=== PATIENT | male | born 1955 ===

== ENCOUNTER 2020-10-26 11:00 | Outpatient (REF) | payer MEDICARE, SELFPAY ==
[2020-10-26 11:58] LABS: MANUAL DIFF FLAG NO
[2020-10-26 12:03] LABS: Basophils Percent Auto 0.6 % (0-2); Eosinophils Absolute Auto 0.2 X10*3/uL (0.0-0.4); Eosinophils Percent Auto 2.7 % (0-4); Hematocrit 42.7 % (42-52); Hemoglobin 14.5 g/dl (14.0-18.0); Imm Gran Abs Auto 0.01 X10*3/uL (0.00-0.03); Imm Gran Pct Auto 0.2 % (0.0-0.4); Lymphocytes Absolute Auto 2.5 X10*3/uL (1.2-4.9); Lymphocytes Percent Auto 38.5 % (20-40); Mean Corpuscular Hemoglobin 31.3 pg (27.0-33.0); Mean Corpuscular Volume 92.2 fL (80-98); Mean Platelet Volume 9.9 fL (9.4-12.4); Monocytes Absolute Auto 0.5 X10*3/uL (0.1-1.2); Monocytes Percent Auto 8.4 % (2-11); Neutrophils Absolute Auto 3.2 X10*3/uL (2.0-8.3); Neutrophils Percent Auto 49.6 % (45-73); Platelet Count 233 X10*3/uL (160-400); Red Blood Count 4.63 X10*6/uL (4.60-5.80); Red Cell Distribution Width 12.2 % (11.0-16.0); White Blood Count 6.4 X10*3/uL (4.8-10.8)
[2020-10-26 12:37] LABS: Alanine Aminotransferase 31 U/L (0-40); Albumin Level 4.5 g/dL (3.5-5.0); Alkaline Phosphatase 58 U/L (39-117); Anion Gap 12 (12-20); Aspartate Amino Transferase 25 U/L (5-37); Bilirubin Total 1.1 mg/dL (0.0-1.0); Blood Urea Nitrogen 26 mg/dL (9-16); Calcium 9.1 mg/dL (8.4-10.2); Carbon Dioxide 30 mmol/L (22-29); Chloride 104 mmol/L (96-108); Cholesterol 219 mg/dL; Estimated Glomerular Filt Rate > 60; Glucose Fasting 94 mg/dL (60-99); HDL Cholesterol 67 mg/dL; LDL Cholesterol Calculated 128 mg/dl; Potassium 4.3 mmol/L (3.3-5.1); Sodium 142 mmol/L (135-145); Total Protein 6.5 g/dL (6.5-8.0); Triglycerides 123 mg/dL
[2020-10-26 12:48] LABS: Prostate Specific Antigen Scr 0.65 ng/mL (<0.05-4.0); TSH reflex Free T4 2.66 uIU/mL (0.32-4.0)
== END 2020-10-26 11:01 | disposition home or self-care (01) ==
LOC: HO.LAB 11:00
PROVIDERS: PCP Internal Medicine; Visit Provider Internal Medicine
DX: Z00.00 Encounter for general adult medical examination without abnormal findings (principal); I10 Essential (primary) hypertension; E78.00 Pure hypercholesterolemia, unspecified; Z12.5 Encounter for screening for malignant neoplasm of prostate
CPT/HCPCS: 36415; 80053; 80061; 84153; 84443; 85025

== ENCOUNTER 2021-09-02 09:27 | Outpatient (REF) | payer MEDICARE, SELFPAY ==
[2021-09-02 12:23] LABS: Appearance Urine CLEAR; Color Urine YELLOW; Glucose Urine UA NEG (NEG); Leukocyte Esterase Urine NEG (NEG); Nitrite Urine NEG (NEG); PH 5.5 (5.0-8.0); Specific Gravity - Urine >= 1.030 (1.005-1.025); Urine Blood NEG (NEG); Urine Ketones 15 MG/DL (NEG); Urine Protein NEG (NEG-TRACE)
[2021-09-02 14:08] LABS: Alanine Aminotransferase 35 U/L (0-40); Albumin Level 4.4 g/dL (3.5-5.0); Alkaline Phosphatase 61 U/L (39-117); Anion Gap 13 (12-20); Aspartate Amino Transferase 30 U/L (5-37); Bilirubin Total 0.7 mg/dL (0.0-1.0); Blood Urea Nitrogen 23 mg/dL (9-16); Calcium 9.8 mg/dL (8.4-10.2); Carbon Dioxide 27 mmol/L (22-29); Chloride 103 mmol/L (96-108); Cholesterol 231 mg/dL; Estimated Glomerular Filt Rate > 60; Glucose Fasting 94 mg/dL (60-99); HDL Cholesterol 62 mg/dL; LDL Cholesterol Calculated 155 mg/dl; Potassium 4.2 mmol/L (3.3-5.1); Sodium 139 mmol/L (135-145); Total Protein 6.7 g/dL (6.5-8.0); Triglycerides 72 mg/dL
== END 2021-09-02 09:28 | disposition home or self-care (01) ==
LOC: HO.LAB 09:27
PROVIDERS: PCP Internal Medicine; Visit Provider Internal Medicine
DX: Z00.00 Encounter for general adult medical examination without abnormal findings (principal); I10 Essential (primary) hypertension; E78.00 Pure hypercholesterolemia, unspecified
CPT/HCPCS: 36415; 80053; 80061; 81003

== ENCOUNTER 2022-05-26 08:26 | Outpatient (REF) | payer MEDICARE, SELFPAY ==
[2022-05-26 09:38] LABS: Alanine Aminotransferase 31 U/L (0-40); Albumin Level 4.6 g/dL (3.5-5.0); Alkaline Phosphatase 56 U/L (39-117); Anion Gap 15 (12-20); Aspartate Amino Transferase 27 U/L (5-37); Bilirubin Total 0.7 mg/dL (0.0-1.0); Blood Urea Nitrogen 31 mg/dL (9-16); Calcium 9.6 mg/dL (8.4-10.2); Carbon Dioxide 25 mmol/L (22-29); Chloride 104 mmol/L (96-108); Cholesterol 328 mg/dL; Estimated Glomerular Filt Rate > 60; Glucose Fasting 104 mg/dL (60-99); HDL Cholesterol 69 mg/dL; LDL Cholesterol Calculated 241 mg/dl; Potassium 4.5 mmol/L (3.3-5.1); Sodium 139 mmol/L (135-145); Total Protein 6.8 g/dL (6.5-8.0); Triglycerides 91 mg/dL
[2022-05-26 10:01] LABS: Prostate Specific Antigen 0.44 ng/mL (<0.05-4.0)
== END 2022-05-26 08:27 | disposition home or self-care (01) ==
LOC: HO.LAB 08:26
PROVIDERS: PCP Internal Medicine; Visit Provider Internal Medicine
DX: Z00.00 Encounter for general adult medical examination without abnormal findings (principal); N40.0 Benign prostatic hyperplasia without lower urinary tract symptoms; E78.00 Pure hypercholesterolemia, unspecified; Z12.5 Encounter for screening for malignant neoplasm of prostate
CPT/HCPCS: 36415; 80053; 80061; 84153

== ENCOUNTER 2022-06-02 10:04 | Outpatient (REF) | payer MEDICARE, SELFPAY ==
--- NOTE | ~2022-06-02 | XR_ITS ---
EXAMINATION: XR CERVICAL SPINE CLINICAL INFORMATION: Neck pain and tightness COMPARISON: None TECHNIQUE: 3 views of the cervical spine were obtained. FINDINGS: Bone alignment is normal. No fracture or dislocation is seen. There is degenerative spondylosis and degenerative disc disease from C4-C5 to C6-C7. Prevertebral soft tissues are normal. XR/XR cervical spine 3V IMPRESSION: Degenerative changes.
== END 2022-06-02 10:05 | disposition home or self-care (01) ==
LOC: HO.XRAY 10:04
PROVIDERS: PCP Internal Medicine; Visit Provider Internal Medicine
DX: M54.2 Cervicalgia (principal)
CPT/HCPCS: 72040

== ENCOUNTER → 2022-06-10 07:44 | Outpatient (BNVA) | payer MEDICARE, SELFPAY | PROVIDERS: PCP Internal Medicine; Visit Provider Nurse Practitioner Family | DX: G47.33 Obstructive sleep apnea (adult) (pediatric) (principal) | CPT/HCPCS: 99202 ==

== ENCOUNTER → 2022-06-30 12:46 | Outpatient (REF) | payer MEDICARE, SELFPAY | LOC: HO.SL 12:46 | PROVIDERS: PCP Internal Medicine; Visit Provider Nurse Practitioner Family | DX: G47.33 Obstructive sleep apnea (adult) (pediatric) (principal) | CPT/HCPCS: 95806 ==

== ENCOUNTER → 2022-08-29 13:54 | Outpatient (BNVA) | payer MEDICARE, SELFPAY | PROVIDERS: PCP Internal Medicine; Visit Provider Nurse Practitioner Family | DX: G47.33 Obstructive sleep apnea (adult) (pediatric) (principal); J34.2 Deviated nasal septum; R06.83 Snoring; E66.3 Overweight; Z68.24 Body mass index [BMI] 24.0-24.9, adult | CPT/HCPCS: 99212 ==

== ENCOUNTER 2022-11-24 08:26 | Outpatient (REF) | payer MEDICARE, SELFPAY ==
[2022-11-24 08:45] LABS: MANUAL DIFF FLAG NO
[2022-11-24 09:04] LABS: Basophils Percent Auto 0.9 % (0-2); Eosinophils Absolute Auto 0.1 X10*3/uL (0.0-0.4); Eosinophils Percent Auto 2.7 % (0-4); Hematocrit 40.5 % (42.0-52.0); Hemoglobin 13.6 g/dl (14.0-18.0); Lymphocytes Absolute Auto 2.2 X10*3/uL (1.2-4.9); Lymphocytes Percent Auto 50.1 % (20-40); Mean Corpuscular HGB Conc 33.6 g/dl (31.0-36.0); Mean Corpuscular Hemoglobin 31.5 pg (27.0-33.0); Mean Corpuscular Volume 93.8 fL (80.0-98.0); Mean Platelet Volume 9.8 fL (9.4-12.4); Monocytes Absolute Auto 0.4 X10*3/uL (0.1-1.2); Monocytes Percent Auto 9.2 % (2-11); Neutrophils Absolute Auto 1.7 x10*3/uL (2.0-8.3); Neutrophils Percent Auto 37.1 % (45-73); Platelet Count 209 X10*3/uL (160-400); Red Blood Count 4.32 X10*6/uL (4.60-5.80); Red Cell Distribution Width 12.6 % (11.0-16.0); White Blood Count 4.5 X10*3/uL (4.8-10.8)
[2022-11-24 09:19] LABS: Estimated Average Glucose 105 mg/dL; Hemoglobin A1c % 5.3 %
[2022-11-24 09:57] LABS: Alanine Aminotransferase 35 U/L (0-40); Albumin Level 4.7 g/dL (3.5-5.0); Alkaline Phosphatase 50 U/L (39-117); Anion Gap 13 (12-20); Aspartate Amino Transferase 30 U/L (5-37); Bilirubin Total 1.5 mg/dL (0.0-1.0); Blood Urea Nitrogen 16 mg/dL (9-16); Calcium 9.7 mg/dL (8.4-10.2); Carbon Dioxide 28 mmol/L (22-29); Chloride 103 mmol/L (96-108); Cholesterol 229 mg/dL; Estimated Glomerular Filt Rate 55; Glucose Fasting 91 mg/dL (60-99); HDL Cholesterol 88 mg/dL; LDL Cholesterol Calculated 129 mg/dl; Potassium 4.3 mmol/L (3.3-5.1); Sodium 140 mmol/L (135-145); Total Protein 6.6 g/dL (6.5-8.0); Triglycerides 60 mg/dL
[2022-11-24 10:15] LABS: TSH reflex Free T4 2.25 uIU/mL (0.32-4.0); Vitamin D 25-OH Total 83.6 ng/mL (>30)
[2022-11-24 10:17] LABS: Appearance Urine Clear; Color Urine Yellow; Glucose Urine UA Negative (Negative); Leukocyte Esterase Urine Negative (Negative); Nitrite Urine Negative (Negative); Specific Gravity - Urine <= 1.005 (1.005-1.025); Urine Blood Negative (Negative); Urine Ketones Negative (Negative); Urine Protein Negative (Neg-Trace)
== END 2022-11-24 08:27 | disposition home or self-care (01) ==
LOC: HO.LAB 08:26
PROVIDERS: PCP Internal Medicine; Visit Provider Internal Medicine
DX: R73.01 Impaired fasting glucose (principal); I10 Essential (primary) hypertension; E78.00 Pure hypercholesterolemia, unspecified; E55.9 Vitamin D deficiency, unspecified; R30.0 Dysuria
CPT/HCPCS: 36415; 80053; 80061; 81003; 82306; 83036; 84443; 85025

== ENCOUNTER 2023-07-06 11:56 | Outpatient (REF) | payer MEDICARE, SELFPAY ==
[2023-07-06 12:06] LABS: MANUAL DIFF FLAG NO
[2023-07-06 12:28] LABS: Basophils Absolute Auto 0.1 X10*3/uL (0.0-0.2); Basophils Percent Auto 0.6 % (0-2); Eosinophils Absolute Auto 0.1 X10*3/uL (0.0-0.4); Eosinophils Percent Auto 1.1 % (0-4); Hematocrit 42.1 % (42.0-52.0); Hemoglobin 14.4 g/dl (14.0-18.0); Imm Gran Abs Auto 0.02 X10*3/uL (0.00-0.03); Imm Gran Pct Auto 0.2 % (0.0-0.4); Lymphocytes Absolute Auto 2.6 X10*3/uL (1.2-4.9); Lymphocytes Percent Auto 30.8 % (20-40); Mean Corpuscular HGB Conc 34.2 g/dl (31.0-36.0); Mean Corpuscular Volume 90.5 fL (80.0-98.0); Mean Platelet Volume 9.3 fL (9.4-12.4); Monocytes Absolute Auto 0.5 X10*3/uL (0.1-1.2); Monocytes Percent Auto 6.1 % (2-11); Neutrophils Absolute Auto 5.3 x10*3/uL (2.0-8.3); Neutrophils Percent Auto 61.2 % (45-73); Platelet Count 198 X10*3/uL (160-400); Red Blood Count 4.65 X10*6/uL (4.60-5.80); Red Cell Distribution Width 12.7 % (11.0-16.0); White Blood Count 8.6 X10*3/uL (4.8-10.8)
[2023-07-06 12:49] LABS: Alanine Aminotransferase 27 U/L (0-40); Albumin Level 4.8 g/dL (3.5-5.0); Alkaline Phosphatase 50 U/L (39-117); Anion Gap 13 (12-20); Aspartate Amino Transferase 27 U/L (5-37); Bilirubin Total 1.2 mg/dL (0.0-1.0); Blood Urea Nitrogen 31 mg/dL (9-16); Carbon Dioxide 28 mmol/L (22-29); Chloride 106 mmol/L (96-108); Cholesterol 235 mg/dL (<200); Estimated Glomerular Filt Rate > 60; Glucose Fasting 86 mg/dL (60-99); HDL Cholesterol 99 mg/dL (>40); LDL Cholesterol Calculated 124 mg/dL (<100); Potassium 4.4 mmol/L (3.3-5.1); Sodium 143 mmol/L (135-145); Total Protein 7.2 g/dL (6.5-8.0); Triglycerides 63 mg/dL (<150)
[2023-07-06 13:12] LABS: Folate 14.3 ng/mL (> or = 4.0); Prostate Specific Antigen 0.96 ng/mL (<0.05-4.0); Vitamin B12 1298 pg/mL (200-900)
== END 2023-07-06 11:57 | disposition home or self-care (01) ==
LOC: HO.LAB 11:56
PROVIDERS: PCP Internal Medicine; Visit Provider Internal Medicine
DX: I10 Essential (primary) hypertension (principal); D64.9 Anemia, unspecified; E78.00 Pure hypercholesterolemia, unspecified; N40.0 Benign prostatic hyperplasia without lower urinary tract symptoms; E53.8 Deficiency of other specified B group vitamins; Z12.5 Encounter for screening for malignant neoplasm of prostate
CPT/HCPCS: 36415; 80053; 80061; 82607; 82746; 84153; 85025

== ENCOUNTER 2023-07-13 08:46 | Outpatient (AMB) | payer MEDICARE, SELFPAY ==
[2023-07-13 08:49] VITALS: BP 110/74; PULSE 61; O2SAT 99; BMI 24.5
--- NOTE | 2023-07-13 08:49 | A.OFFPC_ITS ---
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 Required: No Accompanied by: Self / Same As Patient Allergies amoxicillin [AMOXICILLIN] Allergy (Unknown, Verified 07/13/23 09:21) RASH tree nut [TREE NUT] Allergy (Unknown, Verified 07/13/23 09:21) SWELLING MOUTH Medication List - Last Reconciled 07/13/23 by Bal Ramirez MD atorvastatin 20 mg PO BEDTIME 90 days cholecalciferol (vitamin D3) 25 mcg PO DAILY finasteride 1 mg PO DAILY 90 days vitamin B complex 1 tab PO DAILY Tobacco use date assessed: 07/13/23 Fall risk assessment: No Falls in past year Last assessed Fall Risk: 07/13/23 Dental Screening Dental Screen Date: 07/13/23 Did you have a dental visit in the last 12 months?: Yes Did you have a dental problem in the last 6 months where you did not have access to dental care?: No Was dental information given to patient?: Patient has dentist HPI hyperlipidemia, leucopenia HPI Details Patient comes in today for his follow up visit States that he feels okay He denies any headaches or dizziness Denies any chest pains, no SOB No nausea/vomiting, no abdominal pain No change in bowel habits noted Has noticed some urinary hesitancy lately - states that it takes him a long time to urinate often in the morning Has had to get up to use the bathroom at times in the middle of the night but states that this is not consistent as there are times when he sleeps through the night without any issues Is concerned about prostate enlargement and also about the possibility of prostate cancer as he's had at least a couple of family members that was diagnosed with prostate cancer years ago He has been on Finasteride for years but is only taking 1 mg daily and this is mostly taken to help stave off hair loss and not for prostate issues Had his follow up labs done last week - to discuss his results [facility] Medical History (Updated 07/13/23 @ 10:47 by Bal Ramirez MD) Vitamin D deficiency Impaired fasting glucose External nasal lesion Pain and swelling of right knee GI bleed Overweight (BMI 25.0-29.9) Obstructive sleep apnea Allergic rhinitis Benign prostatic hyperplasia Pure hypercholesterolemia Surgical History History of arthroscopy of knee History of hernia repair Family History Father Prostate cancer Hypertension Hyperlipidemia Paternal Grandmother Diabetes mellitus Mother Hyperlipidemia Alzheimer's dementia Arthritis Social History Housing: House Alcohol intake: former Patient Tobacco Use Status: Never used Tobacco e-Cigarette/Vaping Use: Never Used Second Hand Smoke Exposure: No service: No Current occupational status: retired Cognitive needs: No Hearing needs: No Vision needs: Yes (reading glasses) Questionnaire PHQ-9 Over the last 2 weeks, how often have you been bothered by any of the following problems? 1. Little interest or pleasure in doing things: not at all 2. Feeling down, depressed, or hopeless: not at all 3. Trouble falling or staying asleep, or sleeping too much: not at all 4. Feeling tired or having little energy: not at all 5. Poor appetite or overeating: not at all 6. Feeling bad about yourself - or that you are a failure or have let yourself or your family down: not at all 7. Trouble concentrating on things, such as reading the newspaper or watching television: not at all 8. Moving or speaking so slowly that other people could have noticed. Or the opposite - being so fidgety or restless that you have been moving around a lot more than usual: not at all 9. Thoughts that you would be better off or of hurting yourself in some way: not at all Total score: 0 Depression Screening Interpretation: Negative Depression Screening Done: Yes 73399 - PHQ-9 Billing: Yes Source: Developed by Drs. Rocky Bennett, Susannah Gurrola, Eduardo Gordon and colleagues, with an educational gayathri from [employer]. Thrive Questionnaire Date Thrive assessed: 07/13/23 I am a: Patient What is your living situation today?: I have a steady place to live Within the past 12 months, did the food you bought not last and you didn't have the money to get more?: Never true Within the past 12 months, did you worry whether your food would run out before you got money to buy more?: Never true Do you have trouble paying for medicines?: No Do you have trouble getting transportation to medical appointments?: No Do you have trouble paying your heating and electricity bill?: No Do you have trouble taking care of your child, family member or friend?: No Do you have trouble with day-to-day activities such as bathing, preparing meals, shopping, managing finances, etc.?: No Are you currently unemployed and looking for a job?: No Are you interested in more education?: No Please select the resources that you would like help with: None Currently or been in a relationship where the following occur: no concerns reported AUDIT C Alcohol Use Questionnaire (AUDIT-C) 1. How often do you have a drink containing alcohol?: Never 2. How many drinks containing alcohol do you have on a typical day when you are drinking?: 1 or 2 (0) 3. How often do you have six or more drinks on one occasion?: Never Total Score: 0 Score Reviewed/Action Taken: Yes MAYRA-7 AMB Questionnaire MAYRA-7 Date MAYRA - 7 assessed: 07/13/23 Feeling nervous, anxious, or on edge: 0 = Not at all Not being able to stop or control worryin = Not at all Worrying too much about different things: 0 = Not at all Trouble relaxin = Not at all Being so restless that it is hard to sit still: 0 = Not at all Becoming easily annoyed or irritable: 0 = Not at all Feeling afraid as if something awful might happen: 0 = Not at all Total MAYRA-7 score (0-4 normal; 5-9 mild; 10-14 moderate; 15-21 severe): 0 Source: Developed by Drs. Rocky Bennett, Susannah Gurrola, Eduardo Gordon and colleagues, with an educational gayathri from [employer]. Review of Systems Const Denies chills, Denies fatigue, Denies fever(s) and Denies headache(s) ENT Denies dysphagia, Denies dizziness, Denies otalgia, Denies headache(s), Denies neck pain, Denies odynophagia and Denies sore throat Card Denies chest pain, Denies palpitations and Denies dyspnea Resp Denies cough and Denies dyspnea GI Denies abdominal pain, Denies constipation, Denies dysphagia, Denies heartburn, Denies diarrhea, Denies nausea, Denies odynophagia and Denies vomiting Denies dysuria, Denies nocturia, Denies urinary frequency and Reports urinary hesitancy (mostly in the morning - takes him a long time to urinate) Musc Denies back pain and Denies neck pain Skin/Breast Denies rash Neuro Denies dizziness and Denies headache(s) Endo Denies fatigue and Denies palpitations Physical exam (Primary Care) Vital Signs: Last Vital Signs Pulse 61 07/13/23 08:49 BP 110/74 07/13/23 08:49 Pulse Ox 99 07/13/23 08:49 Oxygen Delivery Method Room Air 07/13/23 08:49 BMI result Body Mass Index 24.5 Tobacco/Smoking Status: Tobacco use Status Tobacco use date assessed 07/13/23 07/13/23 08:55 Patient Tobacco Use Status Never used Tobacco 07/13/23 08:55 e-Cigarette/Vaping Use Never Used 07/13/23 08:55 PHQ-9: PHQ-9 Score PHQ-9: Total score 0 07/13/23 08:55 Depression Screening Interpretation: Negative Thrive Assessment: Date of Thrive Assessment Date Thrive assessed 07/13/23 07/13/23 08:55 Currently or been in a relationship where the following occur: no concerns reported Const General: no acute distress and alert HENMT Ears: TM's normal bilaterally and EAC's normal Throat: Yes posterior oropharynx normal and Yes tonsils normal (no TP congestion) Neck Neck: Yes no lymphadenopathy, Yes supple and No tender Resp Auscultation: clear to auscultation bilaterally, no rales and no wheezes Cardio Rate: regular rate Rhythm: regular rhythm Heart sounds: no murmurs GI Palpation (GI): Soft to palpation and nontender Auscultation: normal bowel sounds Rectal Exam - Male: Yes normal sphincter tone, Yes prostate normal and Yes heme negative stool General: Yes no CVA tenderness Back/Spine/Pelvis Back: no CVA tenderness Cervical Spine: No Cervical spine tenderness Thoracic/Lumbar Spine: No lumbar spinal tenderness Skin Lesions: no lesions Rashes: no rashes Extrem General: Yes no clubbing, cyanosis or edema Results Reviewed Results Reviewed: Laboratory Tests 07/06/23 12:04 WBC 8.6 Hgb 14.4 Hct 42.1 Plt Count 198 Sodium 143 Potassium 4.4 Creatinine 1.11 Estimated GFR > 60 Fasting Glucose 86 Calcium 10.0 AST 27 ALT 27 Triglycerides 63 Cholesterol 235 H LDL Cholesterol, Calc 124 H HDL Cholesterol 99 Prostate Specific Ag 0.96 Vitamin B12 1298 H Folate 14.3 Assessment and Plan Assessment & Plan (1) Pure hypercholesterolemia: Code(s): E78.00 - Pure hypercholesterolemia, unspecified Plan: Results of his labs done last week reviewed and discussed with patient - advised that his HDL cholesterol has gone up further from previous and this is skewing his total cholesterol higher; LDL cholesterol remains within acceptable range Reinforced low cholesterol diet Continue Atorvastatin 20 mg QD Will recheck his labs and fasting lipids in 6 months for follow up (2) Benign prostatic hyperplasia: Code(s): N40.0 - Benign prostatic hyperplasia without lower urinary tract symptoms Qualifiers: Lower urinary tract symptom presence: symptoms present Lower urinary tract symptom detail: urinary hesitancy Qualified Code(s): N40.1 - Benign prostatic hyperplasia with lower urinary tract symptoms; R39.11 - Hesitancy of micturition Plan: Patient reports experiencing urinary hesitancy and some difficulty urinating lately, most often in the morning PSA was normal on his labs done last week Prostate was also NOT enlarged on digital rectal exam today but discussed that prostate enlargement can occur anteriorly, in which case the ERIK would not be helpful Have discussed option of referral to urology for further evaluation, especially if he is concerned about the possibility of prostate cancer, but patient would like to hold off on urology referral at this time - is advised that he can still call for the referral at any time if he changes his mind about this He has been taking Finasteride for a few years now but is taking the 1 mg dose daily and mostly to prevent hair loss and NOT for prostate issues Will start him on a trial of Tamsulosin 0.4 mg Q HS for now to help with his urinary symptoms (3) Allergic rhinitis: Code(s): J30.9 - Allergic rhinitis, unspecified Qualifiers: Allergic rhinitis trigger: unspecified Allergic rhinitis seasonality: unspecified Qualified Code(s): J30.9 - Allergic rhinitis, unspecified Plan: Continue Fluticasone 50 mcg nasal spray 1 to 2 sprays into each nostril QD PRN (4) Anemia: Code(s): D64.9 - Anemia, unspecified Qualifiers: Anemia type: unspecified type Qualified Code(s): D64.9 - Anemia, unspecified Plan: Resolved - advised that both his previous mild leucopenia and anemia have both reverted back to normal, and no further intervention is necessary at this time Will continue to monitor his CBC routinely (5) Obstructive sleep apnea: Comment: diagnosed 04/2010 Code(s): G47.33 - Obstructive sleep apnea (adult) (pediatric) Plan: States that he stopped using his CPAP device a year or so ago and his reportedly told him that he has not been snoring as much lately Was referred to and seen by Sleep Medicine recently but as patient is currently feeling well and is not interested in getting a repeat sleep study done now, was advised to just use OTC nasal strips when sleeping at night to help reduce his snoring and to just follow up with Sleep Medicine on an as needed basis (6) Elevated vitamin B12 level: Code(s): R74.8 - Abnormal levels of other serum enzymes Plan: Advised that his Vitamin B12 level is significantly elevated at over 1200 pg/ml on his recent labs Patient states that he has been taking OTC Vitamin B complex daily for years now Is advised to try at least cutting back on this to every other day and we will recheck his B12 level in 6 months for follow up (7) Vitamin D deficiency: Code(s): E55.9 - Vitamin D deficiency, unspecified Plan: Corrected - continue OTC Vitamin D3 1000 units QD (8) Impaired fasting glucose: Code(s): R73.01 - Impaired fasting glucose Plan: FBS was again normal at 86 mg/dl on his labs done last week; HgbA1c was normal at 5.3% when previously checked Reinforced low calorie diet/exercise as tolerated (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 Panel Fast 6 Months E78.00 - Pure hypercholesterolemia, unspecified Lipid Panel 6 Months E78.00 - Pure hypercholesterolemia, unspecified Vitamin B12 and Folate 6 Months R74.8 - Abnormal levels of other serum enzymes UA CC w/rflx Micro + Cult 6 Months N40.1 - Benign prostatic hyperplasia with lower urinary tract symptoms, R39.11 - Hesitancy of micturition Medications: New tamsulosin 0.4 mg PO BEDTIME 90 days 90 caps 1RF N40.1 - Benign prostatic hyperplasia with lower urinary tract symptoms, R35.1 - Nocturia Coding Level of Care Code Est Pt Level 4 (89905) Diagnoses Pure hypercholesterolemia E78.00 Benign prostatic hyperplasia with urinary hesitancy N40.1; R39.11 Lower urinary tract symptom presence: symptoms present Lower urinary tract symptom detail: urinary hesitancy Allergic rhinitis, unspecified seasonality, unspecified trigger J30.9 Allergic rhinitis trigger: unspecified Allergic rhinitis seasonality: unspecified Anemia, unspecified type D64.9 Anemia type: unspecified type Obstructive sleep apnea G47.33 Elevated vitamin B12 level R74.8 Vitamin D deficiency E55.9 Impaired fasting glucose R73.01 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
== END 2023-07-13 09:42 | disposition home or self-care (01) ==
PROVIDERS: PCP Internal Medicine; Visit Provider Internal Medicine
DX: E78.00 Pure hypercholesterolemia, unspecified (principal); N40.1 Benign prostatic hyperplasia with lower urinary tract symptoms; R39.11 Hesitancy of micturition; J30.9 Allergic rhinitis, unspecified; D64.9 Anemia, unspecified; G47.33 Obstructive sleep apnea (adult) (pediatric); R74.8 Abnormal levels of other serum enzymes; E55.9 Vitamin D deficiency, unspecified; R73.01 Impaired fasting glucose; L90.5 Scar conditions and fibrosis of skin
CPT/HCPCS: 99214

== ENCOUNTER 2024-01-05 08:54 | Outpatient (REF) | payer MEDICARE, SELFPAY ==
[2024-01-05 09:23] LABS: MANUAL DIFF FLAG NO
[2024-01-05 09:30] LABS: Basophils Absolute Auto 0.1 X10*3/uL (0.0-0.2); Eosinophils Absolute Auto 0.1 X10*3/uL (0.0-0.4); Eosinophils Percent Auto 2.2 % (0-4); Hematocrit 39.6 % (42.0-52.0); Hemoglobin 13.3 g/dl (14.0-18.0); Lymphocytes Absolute Auto 2.7 X10*3/uL (1.2-4.9); Lymphocytes Percent Auto 55.3 % (20-40); Mean Corpuscular HGB Conc 33.6 g/dl (31.0-36.0); Mean Corpuscular Hemoglobin 31.2 pg (27.0-33.0); Mean Platelet Volume 9.3 fL (9.4-12.4); Monocytes Absolute Auto 0.4 X10*3/uL (0.1-1.2); Monocytes Percent Auto 8.4 % (2-11); Neutrophils Absolute Auto 1.6 x10*3/uL (2.0-8.3); Neutrophils Percent Auto 33.1 % (45-73); Platelet Count 182 X10*3/uL (160-400); Red Blood Count 4.26 X10*6/uL (4.60-5.80); Red Cell Distribution Width 11.8 % (11.0-16.0); White Blood Count 4.9 X10*3/uL (4.8-10.8)
[2024-01-05 10:26] LABS: Alanine Aminotransferase 31 U/L (0-40); Albumin Level 4.4 g/dL (3.5-5.0); Alkaline Phosphatase 55 U/L (39-117); Anion Gap 15 (12-20); Aspartate Amino Transferase 31 U/L (5-37); Bilirubin Total 0.9 mg/dL (0.0-1.0); Blood Urea Nitrogen 30 mg/dL (9-16); Carbon Dioxide 27 mmol/L (22-29); Chloride 104 mmol/L (96-108); Cholesterol 192 mg/dL (<200); Estimated Glomerular Filt Rate > 60; Glucose Fasting 97 mg/dL (60-99); HDL Cholesterol 81 mg/dL (>40); LDL Cholesterol Calculated 100 mg/dL (<100); Potassium 4.4 mmol/L (3.3-5.1); Sodium 142 mmol/L (135-145); Total Protein 6.6 g/dL (6.5-8.0); Triglycerides 55 mg/dL (<150)
[2024-01-05 10:55] LABS: Folate 13.1 ng/mL (> or = 4.0); Vitamin B12 982 pg/mL (200-900)
== END 2024-01-05 08:55 | disposition home or self-care (01) ==
LOC: HO.LAB 08:54
PROVIDERS: PCP Internal Medicine; Visit Provider Internal Medicine
DX: Z13.89 Encounter for screening for other disorder (principal)
CPT/HCPCS: 36415; 80053; 80061; 82607; 82746; 85025

== ENCOUNTER 2024-01-05 11:44 | Outpatient (REF) | payer MEDICARE, SELFPAY ==
[2024-01-05 12:11] LABS: Appearance Urine Clear; Color Urine Yellow; Glucose Urine UA Negative (Negative); Leukocyte Esterase Urine Negative (Negative); Nitrite Urine Negative (Negative); PH 6.5 (5.0-9.0); Specific Gravity - Urine 1.025 (1.005-1.025); Urine Blood Negative (Negative); Urine Ketones Negative (Negative); Urine Protein Negative (Neg-Trace)
== END 2024-01-05 11:45 | disposition home or self-care (01) ==
LOC: HO.LNP 11:44
PROVIDERS: Visit Provider Internal Medicine
DX: N40.1 Benign prostatic hyperplasia with lower urinary tract symptoms (principal); R39.11 Hesitancy of micturition; R74.8 Abnormal levels of other serum enzymes; E78.00 Pure hypercholesterolemia, unspecified; D72.819 Decreased white blood cell count, unspecified; D64.9 Anemia, unspecified
CPT/HCPCS: 36415; 80053; 80061; 81003; 82607; 82746; 85025

== ENCOUNTER 2024-01-11 08:51 | Outpatient (AMB) | payer MEDICARE, SELFPAY ==
--- NOTE | 2024-01-11 09:00 | A.OFFPC_ITS ---
Vital Signs 01/11/24 09:03 Height 5 ft 5 in Weight 143 lb BMI 23.8 BP 118/62 Blood Pressure Location Lt brachial Position Sitting Pulse 57 Pulse Source Pulse Oximeter Pulse Oximetry (%) 100 Oxygen Delivery Method Room Air Intake Visit Reasons: hyperlipidemia, BPH Intake Note: Patient is here to follow up on Hyperlipidemia, BPH. Continuous Washer Operator Required: No Statistics Teacher: Not Required per policy Accompanied by: Self / Same As Patient Allergies amoxicillin [AMOXICILLIN] Allergy (Unknown, Verified 01/11/24 09:21) RASH tree nut [TREE NUT] Allergy (Unknown, Verified 01/11/24 09:21) SWELLING MOUTH Medication List - Last Reconciled 01/11/24 by Bal Ramirez MD atorvastatin 20 mg PO BEDTIME 90 days cholecalciferol (vitamin D3) 25 mcg PO DAILY finasteride 1 mg PO DAILY 90 days tamsulosin 0.4 mg PO BEDTIME 90 days Tobacco use date assessed: 01/11/24 Fall risk assessment: 1 Fall in past year Last assessed Fall Risk: 01/11/24 Dental Screening Dental Screen Date: 01/11/24 Did you have a dental visit in the last 12 months?: Yes Did you have a dental problem in the last 6 months where you did not have access to dental care?: No Was dental information given to patient?: Patient has dentist HPI hyperlipidemia, BPH HPI Details Patient comes in today for his follow up visit States that he feels okay He denies any headaches or dizziness Denies any chest pains, no SOB No nausea/vomiting, no abdominal pain No change in bowel habits noted Still has some urinary hesitancy and nocturia but states that these have improved slightly with Tamsulosin Would now like to get a referral to see urology just to get checked and make sure that he does not have prostate cancer Had his follow up labs done last week - to discuss his results [facility] Medical History Vitamin D deficiency Impaired fasting glucose External nasal lesion Pain and swelling of right knee GI bleed Overweight (BMI 25.0-29.9) Obstructive sleep apnea Allergic rhinitis Benign prostatic hyperplasia Pure hypercholesterolemia Surgical History History of arthroscopy of knee History of hernia repair Family History Father Prostate cancer Hypertension Hyperlipidemia Paternal Grandmother Diabetes mellitus Mother Hyperlipidemia Alzheimer's dementia Arthritis Social History Housing: House Alcohol intake: former Patient Tobacco Use Status: Never used Tobacco e-Cigarette/Vaping Use: Never Used Second Hand Smoke Exposure: No service: No Current occupational status: retired Cognitive needs: No Hearing needs: No Vision needs: Yes (reading glasses) Questionnaire PHQ-9 Over the last 2 weeks, how often have you been bothered by any of the following problems? 1. Little interest or pleasure in doing things: not at all 2. Feeling down, depressed, or hopeless: not at all 3. Trouble falling or staying asleep, or sleeping too much: not at all 4. Feeling tired or having little energy: not at all 5. Poor appetite or overeating: not at all 6. Feeling bad about yourself - or that you are a failure or have let yourself or your family down: not at all 7. Trouble concentrating on things, such as reading the newspaper or watching television: not at all 8. Moving or speaking so slowly that other people could have noticed. Or the opposite - being so fidgety or restless that you have been moving around a lot more than usual: not at all 9. Thoughts that you would be better off or of hurting yourself in some way: not at all Total score: 0 Depression Screening Interpretation: Negative Depression Screening Done: Yes 77851 - PHQ-9 Billing: Yes Source: Developed by Drs. Rocky Bennett, Susannah Gurrola, Eduardo Gordon and colleagues, with an educational gayathri from [employer]. Thrive Questionnaire Date Thrive assessed: 01/11/24 I am a: Patient What is your living situation today?: I have a steady place to live Within the past 12 months, did the food you bought not last and you didn't have the money to get more?: Never true Within the past 12 months, did you worry whether your food would run out before you got money to buy more?: Never true Do you have trouble paying for medicines?: No Do you have trouble getting transportation to medical appointments?: No Do you have trouble paying your heating and electricity bill?: No Do you have trouble taking care of your child, family member or friend?: No Do you have trouble with day-to-day activities such as bathing, preparing meals, shopping, managing finances, etc.?: No Are you currently unemployed and looking for a job?: No Are you interested in more education?: No Currently or been in a relationship where the following occur: no concerns reported THRIVE Score: 0 AUDIT C Alcohol Use Questionnaire (AUDIT-C) 1. How often do you have a drink containing alcohol?: Never 3. How often do you have six or more drinks on one occasion?: Never Total Score: 0 Score Reviewed/Action Taken: Yes MAYRA-7 AMB Questionnaire MAYRA-7 Date MAYRA - 7 assessed: 01/11/24 Feeling nervous, anxious, or on edge: 0 = Not at all Not being able to stop or control worryin = Not at all Worrying too much about different things: 0 = Not at all Trouble relaxin = Not at all Being so restless that it is hard to sit still: 0 = Not at all Becoming easily annoyed or irritable: 0 = Not at all Feeling afraid as if something awful might happen: 0 = Not at all Total MAYRA-7 score (0-4 normal; 5-9 mild; 10-14 moderate; 15-21 severe): 0 Source: Developed by Drs. Rocky Bennett, Susannah Gurrola, Eduardo Gordon and colleagues, with an educational gayathri from [employer]. Review of Systems Const Denies chills, Denies fatigue, Denies fever(s) and Denies headache(s) ENT Denies dysphagia, Denies dizziness, Denies otalgia, Denies headache(s), Denies neck pain, Denies odynophagia and Denies sore throat Card Denies chest pain, Denies palpitations and Denies dyspnea Resp Denies cough and Denies dyspnea GI Denies abdominal pain, Denies constipation, Denies dysphagia, Denies heartburn, Denies diarrhea, Denies nausea, Denies odynophagia and Denies vomiting Denies dysuria, Reports nocturia (at times), Denies urinary frequency and Reports urinary hesitancy (mostly in the morning - takes him a long time to urinate) Musc Denies back pain and Denies neck pain Skin/Breast Denies rash Neuro Denies dizziness and Denies headache(s) Endo Denies fatigue and Denies palpitations Physical exam (Primary Care) Vital Signs: Last Vital Signs Pulse 57 01/11/24 09:03 BP 118/62 01/11/24 09:03 Pulse Ox 100 01/11/24 09:03 Oxygen Delivery Method Room Air 01/11/24 09:03 BMI result Body Mass Index 23.8 Tobacco/Smoking Status: Tobacco use Status Tobacco use date assessed 01/11/24 01/11/24 09:08 Patient Tobacco Use Status Never used Tobacco 01/11/24 09:01 e-Cigarette/Vaping Use Never Used 01/11/24 09:01 PHQ-9: PHQ-9 Score PHQ-9: Total score 0 01/11/24 09:01 Depression Screening Interpretation: Negative Thrive Assessment: Date of Thrive Assessment Date Thrive assessed 01/11/24 01/11/24 09:01 Currently or been in a relationship where the following occur: no concerns reported Const General: no acute distress and alert HENMT Ears: TM's normal bilaterally and EAC's normal Throat: Yes posterior oropharynx normal and Yes tonsils normal (no TP congestion) Neck Neck: Yes no lymphadenopathy, Yes supple and No tender Thyroid: Thyroid normal Resp Auscultation: clear to auscultation bilaterally, no rales and no wheezes Cardio Rate: regular rate Rhythm: regular rhythm Heart sounds: no murmurs GI Palpation (GI): Soft to palpation and nontender Auscultation: normal bowel sounds General: Yes no CVA tenderness Back/Spine/Pelvis Back: no CVA tenderness Cervical Spine: No Cervical spine tenderness Thoracic/Lumbar Spine: No lumbar spinal tenderness Skin Rashes: no rashes Extrem General: Yes no clubbing, cyanosis or edema Results Reviewed Results Reviewed: Laboratory Tests 01/05/24 01/05/24 09:21 10:00 WBC 4.9 Hgb 13.3 L Hct 39.6 L Plt Count 182 Sodium 142 Potassium 4.4 Creatinine 1.15 Estimated GFR > 60 Fasting Glucose 97 Calcium 10.0 AST 31 ALT 31 Triglycerides 55 Cholesterol 192 LDL Cholesterol, Calc 100 H HDL Cholesterol 81 Vitamin B12 982 H Ur Specific [place] 1.025 Urine Protein Negative Urine Glucose (UA) Negative Urine Blood Negative Urine Nitrite Negative Ur Leukocyte Esterase Negative Assessment and Plan Assessment & Plan (1) Pure hypercholesterolemia: Code(s): E78.00 - Pure hypercholesterolemia, unspecified Plan: Results of his labs done last week reviewed and discussed with patient - he is advised that his cholesterol levels have improved significantly from previous, especially his LDL cholesterol level Reinforced low cholesterol diet Continue Atorvastatin 20 mg QD Will recheck his labs and fasting lipids in 6 months for follow up (2) Benign prostatic hyperplasia: Code(s): N40.0 - Benign prostatic hyperplasia without lower urinary tract symptoms Qualifiers: Lower urinary tract symptom presence: symptoms present Lower urinary tract symptom detail: urinary hesitancy Qualified Code(s): N40.1 - Benign prostatic hyperplasia with lower urinary tract symptoms; R39.11 - Hesitancy of micturition Plan: Patient reports experiencing urinary hesitancy and some difficulty urinating lately, most often in the morning although these have improved slightly from previous with Tamsulosin 0.4 mg Q HS PSA was normal when it was checked back in June 2023 Prostate was also NOT enlarged on digital rectal exam at his last visit but he was advised that prostate enlargement can occur anteriorly, in which case the ERIK would not be helpful Have discussed option of referral to urology for further evaluation, especially if he is concerned about the possibility of prostate cancer - patient asked to hold off on this at his last visit but would now like to see urology - referral done He has been taking Finasteride for a few years now but is taking the 1 mg dose daily and mostly to prevent hair loss and NOT for prostate issues (3) Allergic rhinitis: Code(s): J30.9 - Allergic rhinitis, unspecified Qualifiers: Allergic rhinitis trigger: unspecified Allergic rhinitis seasonality: unspecified Qualified Code(s): J30.9 - Allergic rhinitis, unspecified Plan: Continue Fluticasone 50 mcg nasal spray 1 to 2 sprays into each nostril QD PRN (4) Anemia: Code(s): D64.9 - Anemia, unspecified Qualifiers: Anemia type: unspecified type Qualified Code(s): D64.9 - Anemia, unspecified Plan: Patient is advised that he has again mild anemia on his recent labs Based on review of his past lab results, he seem to have this once a year and his H/H always seem to revert back to normal 6 months later on their own His RBC indices have remained normal over the years and his B12 level was also normal when previously checked Will continue to monitor his CBC routinely for now and if anything unusual occurs or changes, will then consider referring him to hematology for further evaluation (5) Obstructive sleep apnea: Comment: diagnosed 04/2010 Code(s): G47.33 - Obstructive sleep apnea (adult) (pediatric) Plan: States that he stopped using his CPAP device over a year or so ago and his reportedly told him that he has not been snoring as much lately He was referred to and seen by Sleep Medicine last year but as patient is feeling well, is not interested in getting a repeat sleep study done and was reportedly advised to just use some OTC nasal strips when sleeping at night to help reduce his snoring and to just follow up with Sleep Medicine on an as needed basis (6) Elevated vitamin B12 level: Code(s): R74.8 - Abnormal levels of other serum enzymes Plan: His Vitamin B12 level was significantly elevated at over 1200 pg/ml on his previous labs but this has come down now to just over 900 pg/ml recently Patient states that he has been taking OTC Vitamin B complex daily for years but stopped taking these last year Will continue to monitor his Vitamin B12 level routinely (7) Vitamin D deficiency: Code(s): E55.9 - Vitamin D deficiency, unspecified Plan: Continue OTC Vitamin D3 1000 units QD (8) Impaired fasting glucose: Code(s): R73.01 - Impaired fasting glucose Plan: FBS was again normal at 97 mg/dl on his labs done last week; HgbA1c was normal at 5.3% when previously checked Reinforced low calorie diet/exercise as tolerated (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 Panel Fast 6 Months E78.00 - Pure hypercholesterolemia, unspecified Lipid Panel 6 Months E78.00 - Pure hypercholesterolemia, unspecified UA CC w/rflx Micro + Cult 6 Months R30.0 - Dysuria Vitamin D 25-OH Total 6 Months E55.9 - Vitamin D deficiency, unspecified Complete Blood Count Auto Diff 6 Months D64.9 - Anemia, unspecified TSH reflex Free T4 6 Months E78.00 - Pure hypercholesterolemia, unspecified Referrals Urology Referral N40.1 - Benign prostatic hyperplasia with lower urinary tract symptoms, R39.11 - Hesitancy of micturition Coding Level of Care Code Est Pt Level 4 (84295) Diagnoses Pure hypercholesterolemia E78.00 Benign prostatic hyperplasia with urinary hesitancy N40.1; R39.11 Lower urinary tract symptom presence: symptoms present Lower urinary tract symptom detail: urinary hesitancy Allergic rhinitis, unspecified seasonality, unspecified trigger J30.9 Allergic rhinitis trigger: unspecified Allergic rhinitis seasonality: unspecified Anemia, unspecified type D64.9 Anemia type: unspecified type Obstructive sleep apnea G47.33 Elevated vitamin B12 level R74.8 Vitamin D deficiency E55.9 Impaired fasting glucose R73.01 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
[2024-01-11 09:03] VITALS: BP 118/62; PULSE 57; O2SAT 100; BMI 23.8
== END 2024-01-11 09:57 | disposition home or self-care (01) ==
PROVIDERS: PCP Internal Medicine; Visit Provider Internal Medicine
DX: E78.00 Pure hypercholesterolemia, unspecified (principal); N40.1 Benign prostatic hyperplasia with lower urinary tract symptoms; R39.11 Hesitancy of micturition; J30.9 Allergic rhinitis, unspecified; D64.9 Anemia, unspecified; G47.33 Obstructive sleep apnea (adult) (pediatric); R74.8 Abnormal levels of other serum enzymes; E55.9 Vitamin D deficiency, unspecified; R73.01 Impaired fasting glucose; L90.5 Scar conditions and fibrosis of skin
CPT/HCPCS: 99214

== ENCOUNTER 2024-03-09 10:57 | Outpatient (AMB) | payer MEDICARE, SELFPAY ==
--- NOTE | 2024-03-09 10:59 | MHC.OFFVIS ---
Intake Visit Reasons: BPH without LUTS, hesitancy of urination Intake Note: Patient is present for BPH without LUTS, Hesitancy of urination Urology Medication:tamsulosin,finasteride Antibiotic Allergy:amoxicillin Blood Thinner:none Today's PVR: 0ML'S Plant Security Guard Required: No Allergies amoxicillin [AMOXICILLIN] Allergy (Unknown, Verified 03/09/24 11:07) RASH tree nut [TREE NUT] Allergy (Unknown, Verified 03/09/24 11:07) SWELLING MOUTH Medication List - Last Reconciled 03/09/24 by KEYSHA Arthur atorvastatin 20 mg PO BEDTIME 90 days cholecalciferol (vitamin D3) 25 mcg PO DAILY finasteride 1 mg PO DAILY 90 days HPI Comments Details: Eliel is a very pleasant 68-year-old male patient of Dr. Ramirez. He has a past medical history of vitamin-D deficiency, obstructive sleep apnea, hypercholesteremia, allergic rhinitis, and BPH. In discussion with the patient today he reports noting ongoing worsening lower urinary tract symptoms at which time he discussed with his PCP and recommendations were made for urology referral for further assessment evaluation. He reports a longstanding history of taking finasteride 1 mg daily for hair loss. He reports having trialed Flomax most recently with his PCP however felt this made his allergies worse and has since stopped taking the medication. He reports noting no true improvement when taking Flomax. He reports noting difficulty with urination upon awakening. He also reports a family history of prostate cancer. He reports his dad was diagnosed with prostate cancer at the age of 70. Unable to obtain urine for urinalysis however PVR 0 mL. He otherwise denies incontinence, nocturia, hematuria, dysuria, foul smelling urine, flank pain, fever, and or chills. Discussed at length potential causes for lower urinary tract symptoms patient is experiencing. Discussed obtaining PSA and retroperitoneal ultrasound for further assessment evaluation. Discussed further treatment options to include pelvic floor exercises, medications, and in office cystoscopy for further assessment evaluation. He otherwise offers no other issues or concerns at this time. [facility] Medical History Vitamin D deficiency Impaired fasting glucose External nasal lesion Pain and swelling of right knee GI bleed Overweight (BMI 25.0-29.9) Obstructive sleep apnea Allergic rhinitis Benign prostatic hyperplasia Pure hypercholesterolemia Surgical History History of arthroscopy of knee History of hernia repair Family History Father Prostate cancer Hypertension Hyperlipidemia Paternal Grandmother Diabetes mellitus Mother Hyperlipidemia Alzheimer's dementia Arthritis Social History Housing: House Alcohol intake: former Patient Tobacco Use Status: Never used Tobacco e-Cigarette/Vaping Use: Never Used Second Hand Smoke Exposure: No service: No Current occupational status: retired Cognitive needs: No Hearing needs: No Vision needs: Yes (reading glasses) Review of Systems Const All systems reviewed & are unremarkable except as noted in HPI and below Physical Exam Const General: cooperative, healthy appearing, comfortable, no acute distress, well developed, alert and awake Nutritional Appearance: average body habitus Orientation/consciousness: patient oriented x3 Limitations: no limitations HEENT Head: Yes normal to inspection, Yes normocephalic and Yes atraumatic Ears: hearing grossly normal bilaterally Eyes General: appearance normal, both eyes and all related structures Neck Neck: Yes normal visual inspection and Yes trachea midline Chest Chest palpation & inspection: normal inspection of the chest Resp Effort & Inspection: normal respiratory effort and able to speak in complete sentences Cardio Rate: regular rate GI Inspection: Yes normal to inspection General: Yes no CVA tenderness Back/Spine/Pelvis Back: no CVA tenderness Skin General skin exam: no rashes or lesions noted Neuro General: patient oriented x3 Extrem General: Yes normal to inspection Psych Appearance: grossly normal and well kempt Mental Status: mental status grossly normal Speech and movement: Normal speech and movement present and Clear speech present Affect: normal affect Attitude: cooperative Thought process: Normal thought process present Thought content: Normal thought content present Insight: Fair insight present (Psych) Judgement: Fair judgement present (Psych) Office Procedures Post Void Residual Post Residual Void Post Void Residual (PVR): 0 [id number] Void Residual by ultrasound Assessment & Plan Assessment & Plan (1) Urinary hesitancy due to benign prostatic hyperplasia: Code(s): N40.1 - Benign prostatic hyperplasia with lower urinary tract symptoms; R39.11 - Hesitancy of micturition Category: Medical (2) Family history of prostate cancer in father: Code(s): Z80.42 - Family history of malignant neoplasm of prostate Category: Medical Plan Unable to obtain urine for urinalysis however PVR 0 mL. Will obtain PSA for further assessment evaluation. Will obtain retroperitoneal ultrasound for further assessment evaluation. Discussed at length potential causes of urinary hesitancy. Discussed further treatment options to include pelvic floor exercises versus medications versus in office cystoscopy for further assessment evaluation; risks and benefits of these interventions were discussed at length. He reports to be managing symptoms and does not wish to trial medications at this time. Follow-up in 1-3 months with imaging and labs to be completed prior; or sooner with any issues, concerns, and or questions. Patient Instructions: The patient had an opportunity to ask questions regarding the treatment plan. All questions were answered. Physical exam, labs, and imaging were discussed and reviewed in detail. As well as risks, benefits, and discussion of treatment choices. No major barriers to understanding were identified. The patient expressed understanding and agreement with the above treatment plan. The patient was made aware they should contact our office by phone for worsening of their current condition, the appearance of new symptoms, or with any questions or concerns. Compliance is encouraged with any medications and follow up testing that is ordered. It is a privilege to be allowed the opportunity to participate in? your urological care.? Again, if you have any questions or concerns If you have any questions or concerns please do not hesitate to contact me. The office is [phone]. This note is constructed using voice recognition software. While every effort has been made to ensure accuracy psychotherapist counselor errors may have been included. Yours sincerely, KEYSHA Arthur Coding Level of Care Code New Pt Level 3 (38096) Diagnoses Urinary hesitancy due to benign prostatic hyperplasia N40.1; R39.11 Family history of prostate cancer in father Z80.42 CPT Codes Post Residual Void - PVR CPT Code: 77950-[place] Void Residual by ultrasound ([id number])
== END 2024-03-09 11:32 | disposition home or self-care (01) ==
PROVIDERS: PCP Internal Medicine; Visit Provider Nurse Practitioner Family
DX: N40.1 Benign prostatic hyperplasia with lower urinary tract symptoms (principal); R39.11 Hesitancy of micturition; Z80.42 Family history of malignant neoplasm of prostate
CPT/HCPCS: 99203

== ENCOUNTER → 2024-03-09 10:57 | Outpatient (BNVA) | payer MEDICARE, SELFPAY | PROVIDERS: PCP Internal Medicine; Visit Provider Nurse Practitioner Family | DX: N40.1 Benign prostatic hyperplasia with lower urinary tract symptoms (principal); R39.11 Hesitancy of micturition; Z79.899 Other long term (current) drug therapy; Z80.42 Family history of malignant neoplasm of prostate | CPT/HCPCS: 51798; 99202 ==

== ENCOUNTER 2024-05-16 08:54 | Outpatient (REF) | payer MEDICARE, SELFPAY ==
--- NOTE | ~2024-05-16 | US_ITS ---
EXAMINATION: US RETROPERITONEAL COMPLETE (RENAL) CLINICAL INFORMATION: Benign prostatic hyperplasia with lower urinary tract symptoms. COMPARISON: None available. TECHNIQUE: Real-time imaging of the kidneys and bladder. FINDINGS: RIGHT KIDNEY: 10.1 x 5.0 x 4.5 cm (SAG x AP x TRV). The kidney is normal in size, contour, and echogenicity. Renal cortical thickness is normal. No renal calculi or hydronephrosis. Hypoechoic cystic lesion with a single thin septation is seen in right lower renal pole measuring 3.1 x 1.7 x 1.7 cm in size, compatible with Bosniak category 2 lesion. LEFT KIDNEY: 10.5 x 6.0 x 5.7 cm (SAG x AP x TRV). The kidney is normal in size, contour, and echogenicity. Renal cortical thickness is normal. No focal parenchymal lesions or hydronephrosis. Echogenic focus is seen in mid left kidney measuring 0.3 x 0.4 x 0.3 cm in size. BLADDER: Well distended. Bilateral ureteral jets are demonstrated. Prevoid bladder volume is 156 mL. Postvoid bladder volume is 20 mL. A tiny right posterior lateral urinary bladder diverticulum measuring 0.7 x 0.7 x 0.5 cm in size is present. Prostate volume 15 mL. Multiple chunky calcifications are seen in the prostate gland. US/US retroperitoneal comp IMPRESSION: 1. No hydronephrosis. 2. 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 3. 0.4 cm nonobstructing left renal calculus. 4. Tiny right posterior lateral urinary bladder diverticulum. 5. Prostate is normal in size. Multiple chunky calcifications are seen in the prostate gland. Electronically signed by: Chinedu Kc MD 05/18/2024 07:03 AM EDT
[2024-05-16 14:10] LABS: Prostate Specific Antigen 0.45 ng/mL (<0.05-4.0)
== END 2024-05-16 08:55 | disposition home or self-care (01) ==
LOC: HO.HMGCX 08:54
PROVIDERS: PCP Internal Medicine; Visit Provider Nurse Practitioner Family
DX: N40.1 Benign prostatic hyperplasia with lower urinary tract symptoms (principal); R39.11 Hesitancy of micturition; Z12.5 Encounter for screening for malignant neoplasm of prostate
CPT/HCPCS: 36415; 76770; 84153

== ENCOUNTER 2024-05-30 08:41 | Outpatient (AMB) | payer MEDICARE, SELFPAY ==
--- NOTE | 2024-05-30 08:55 | A.OFFVIS_ITS ---
Intake Visit Reasons: 3m/US/PSA(set) Intake Note: Patient presents today for follow up on: BPH without LUTS, Hesitancy of urination, lab and ultrasound results PSA: 0.45 Imaging Completed: 05/16/24 Urology Medication: finasteride Antibiotic Allergy:amoxicillin Blood Thinner:none Beater Tender Required: No Accompanied by: Self / Same As Patient Allergies amoxicillin [AMOXICILLIN] Allergy (Unknown, Verified 05/30/24 09:17) RASH tree nut [TREE NUT] Allergy (Unknown, Verified 05/30/24 09:17) SWELLING MOUTH Medication List - Last Reconciled 05/30/24 by KEYSHA Arthur atorvastatin 20 mg PO BEDTIME 90 days cholecalciferol (vitamin D3) 25 mcg PO DAILY finasteride 1 mg PO DAILY 90 days HPI Comments Details: Eliel is a very pleasant 68-year-old male patient of Dr. Ramirze. He has a past medical history of vitamin-D deficiency, obstructive sleep apnea, hypercholesteremia, allergic rhinitis, and BPH. He presents to the office today for follow-up of his lower urinary tract symptoms. Of note, patient was seen approximately 3 months ago at which time a retroperitoneal ultrasound and PSA were ordered for further assessment evaluation. These results reviewed with the patient today. Bilateral kidneys with no hydronephrosis or lesions noted. Right kidney with 3.1 cm compatible with Bosniak category 2 cyst which requires no imaging follow-up per radiology report. Left kidney with 4 mm nonobstructing renal calculi. The bladder is well distended and normal. Bladder jets are demonstrated. Pre void bladder volume is approximately 160 mL. Postvoid bladder volume is approximately 20 mL. A tiny right posterior lateral urinary bladder diverticulum is present measuring 7 mm in size. Prostate volume is a proximally 15 mm with calcifications in the prostate gland. PSA 05/17 0.5. He reports since his last office visit here he feels nocturia has improved and feels lower urinary tract symptoms have been manageable. He does have a family history of prostate cancer as his dad was diagnosed with prostate cancer at the age of 70. Unable to provide urine for urinalysis today. When asked he denies incontinence, nocturia, hematuria, dysuria, foul smelling urine, flank pain, fever, and or chills. He is on 1 mg of finasteride daily for hair loss. We discussed at length potential causes for lower urinary tract symptoms patient was experiencing. We discussed bladder triggers/irritants. We discussed further treatment options to include trial of alpha-alvaro verses in office cystoscopy for further assessment evaluation. However patient feels lower urinary tract symptoms are manageable and will continue with surveillance monitoring at this time. He otherwise offers no other issues or concerns at this time. [facility] Medical History Vitamin D deficiency Impaired fasting glucose External nasal lesion Pain and swelling of right knee GI bleed Overweight (BMI 25.0-29.9) Obstructive sleep apnea Allergic rhinitis Benign prostatic hyperplasia Pure hypercholesterolemia Surgical History History of arthroscopy of knee History of hernia repair Family History Father Prostate cancer Hypertension Hyperlipidemia Paternal Grandmother Diabetes mellitus Mother Hyperlipidemia Alzheimer's dementia Arthritis Social History Housing: House Alcohol intake: former Patient Tobacco Use Status: Never used Tobacco e-Cigarette/Vaping Use: Never Used Second Hand Smoke Exposure: No service: No Current occupational status: retired Cognitive needs: No Hearing needs: No Vision needs: Yes (reading glasses) Review of Systems Const All systems reviewed & are unremarkable except as noted in HPI and below Physical Exam Const General: cooperative, healthy appearing, comfortable, no acute distress, well developed, alert and awake Nutritional Appearance: average body habitus Orientation/consciousness: patient oriented x3 Limitations: no limitations HEENT Head: Yes normal to inspection, Yes normocephalic and Yes atraumatic Ears: hearing grossly normal bilaterally Eyes General: appearance normal, both eyes and all related structures Neck Neck: Yes normal visual inspection and Yes trachea midline Chest Chest palpation & inspection: normal inspection of the chest Resp Effort & Inspection: normal respiratory effort and able to speak in complete sentences Cardio Rate: regular rate GI Inspection: Yes normal to inspection General: Yes no CVA tenderness Back/Spine/Pelvis Back: no CVA tenderness Skin General skin exam: no rashes or lesions noted Neuro General: patient oriented x3 Extrem General: Yes normal to inspection Psych Appearance: grossly normal and well kempt Mental Status: mental status grossly normal Speech and movement: Normal speech and movement present and Clear speech present Affect: normal affect Attitude: cooperative Thought process: Normal thought process present Thought content: Normal thought content present Insight: Fair insight present (Psych) Judgement: Fair judgement present (Psych) Results Reviewed Results Reviewed: Date of Service: 05/16/24 EXAMINATION: US RETROPERITONEAL COMPLETE (RENAL) FINDINGS: RIGHT KIDNEY: 10.1 x 5.0 x 4.5 cm (SAG x AP x TRV). The kidney is normal in size, contour, and echogenicity. Renal cortical thickness is normal. No renal calculi or hydronephrosis. Hypoechoic cystic lesion with a single thin septation is seen in right lower renal pole measuring 3.1 x 1.7 x 1.7 cm in size, compatible with Bosniak category 2 lesion. LEFT KIDNEY: 10.5 x 6.0 x 5.7 cm (SAG x AP x TRV). The kidney is normal in size, contour, and echogenicity. Renal cortical thickness is normal. No focal parenchymal lesions or hydronephrosis. Echogenic focus is seen in mid left kidney measuring 0.3 x 0.4 x 0.3 cm in size. BLADDER: Well distended. Bilateral ureteral jets are demonstrated. Prevoid bladder volume is 156 mL. Postvoid bladder volume is 20 mL. A tiny right posterior lateral urinary bladder diverticulum measuring 0.7 x 0.7 x 0.5 cm in size is present. Prostate volume 15 mL. Multiple chunky calcifications are seen in the prostate gland. IMPRESSION: 1. No hydronephrosis. 2. 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 3. 0.4 cm nonobstructing left renal calculus. 4. Tiny right posterior lateral urinary bladder diverticulum. 5. Prostate is normal in size. Multiple chunky calcifications are seen in the prostate gland. Assessment & Plan Assessment & Plan (1) Diverticula, bladder: Code(s): N32.3 - Diverticulum of bladder Category: Medical (2) Renal cyst: Code(s): N28.1 - Cyst of kidney, acquired Category: Medical (3) Nephrolithiasis: Code(s): N20.0 - Calculus of kidney Category: Medical (4) Benign prostatic hyperplasia with urinary hesitancy: Code(s): N40.1 - Benign prostatic hyperplasia with lower urinary tract symptoms; R39.11 - Hesitancy of micturition Category: Medical Plan Unable to obtain urine for urinalysis Recent retroperitoneal ultrasound results reviewed with the patient today; as noted above. Recent PSA results reviewed with the patient today; as noted above. Will continue with surveillance monitoring of PSA as well as lower urinary tract symptoms as patient feels lower urinary tract symptoms have been manageable without intervention. Discussed bladder triggers/irritants. Discussed possible near future in office cystoscopy if symptoms arise. Will obtain PSA in 1 year. Follow-up in 1 year with PSA and PVR; or sooner with any issues, concerns, and or questions. Orders: Orders Prostate Specific Antigen 1 Year N40.1 - Benign prostatic hyperplasia with lower urinary tract symptoms, R39.11 - Hesitancy of micturition Patient Instructions: The patient had an opportunity to ask questions regarding the treatment plan. All questions were answered. Physical exam, labs, and imaging were discussed and reviewed in detail. As well as risks, benefits, and discussion of treatment choices. No major barriers to understanding were identified. The patient expressed understanding and agreement with the above treatment plan. The patient was made aware they should contact our office by phone for worsening of their current condition, the appearance of new symptoms, or with any questions or concerns. Compliance is encouraged with any medications and follow up testing that is ordered. It is a privilege to be allowed the opportunity to participate in? your urological care.? Again, if you have any questions or concerns If you have any questions or concerns please do not hesitate to contact me. The office is [phone]. This note is constructed using voice recognition software. While every effort has been made to ensure accuracy garbage collection supervisor errors may have been included. Yours sincerely, KEYSHA Arthur Coding Level of Care Code Est Pt Level 3 (96408) Complex EM visit Add On G2211 Diagnoses Diverticula, bladder N32.3 Renal cyst N28.1 Nephrolithiasis N20.0 Benign prostatic hyperplasia with urinary hesitancy N40.1; R39.11
== END 2024-05-30 09:17 | disposition home or self-care (01) ==
PROVIDERS: PCP Internal Medicine; Visit Provider Nurse Practitioner Family
DX: N32.3 Diverticulum of bladder (principal); N28.1 Cyst of kidney, acquired; N20.0 Calculus of kidney; N40.1 Benign prostatic hyperplasia with lower urinary tract symptoms; R39.11 Hesitancy of micturition
CPT/HCPCS: 99213; G2211

== ENCOUNTER → 2024-05-30 08:41 | Outpatient (BNVA) | payer MEDICARE, SELFPAY | PROVIDERS: PCP Internal Medicine; Visit Provider Nurse Practitioner Family | DX: N40.1 Benign prostatic hyperplasia with lower urinary tract symptoms (principal); N13.8 Other obstructive and reflux uropathy; R39.11 Hesitancy of micturition; N32.3 Diverticulum of bladder; N28.1 Cyst of kidney, acquired; N20.0 Calculus of kidney | CPT/HCPCS: 99212 ==

== ENCOUNTER 2024-07-06 08:54 | Outpatient (REF) | payer MEDICARE, SELFPAY ==
[2024-07-06 09:15] LABS: MANUAL DIFF FLAG NO
[2024-07-06 09:44] LABS: Basophils Percent Auto 0.8 % (0-2); Eosinophils Absolute Auto 0.2 X10*3/uL (0.0-0.4); Eosinophils Percent Auto 3.4 % (0-4); Hematocrit 40.9 % (42.0-52.0); Hemoglobin 13.8 g/dl (14.0-18.0); Lymphocytes Absolute Auto 2.3 X10*3/uL (1.2-4.9); Lymphocytes Percent Auto 48.9 % (20-40); Mean Corpuscular HGB Conc 33.7 g/dl (31.0-36.0); Mean Corpuscular Hemoglobin 31.2 pg (27.0-33.0); Mean Corpuscular Volume 92.3 fL (80.0-98.0); Monocytes Absolute Auto 0.3 X10*3/uL (0.1-1.2); Monocytes Percent Auto 7.2 % (2-11); Neutrophils Absolute Auto 1.9 x10*3/uL (2.0-8.3); Neutrophils Percent Auto 39.7 % (45-73); Platelet Count 198 X10*3/uL (160-400); Red Blood Count 4.43 X10*6/uL (4.60-5.80); Red Cell Distribution Width 12.2 % (11.0-16.0); White Blood Count 4.7 X10*3/uL (4.8-10.8)
[2024-07-06 09:54] LABS: Appearance Urine Clear; Color Urine Dark Yellow; Glucose Urine UA Negative (Negative); Leukocyte Esterase Urine Trace (Negative); Nitrite Urine Negative (Negative); PH 7.5 (5.0-9.0); UMIC TRIGGER UACC YES; Urine Blood Negative (Negative); Urine Ketones Trace mg/dL (Negative); Urine Protein Negative (Neg-Trace)
[2024-07-06 09:57] LABS: Bacteria Urine None Seen (None Seen); Hyaline Casts Urine 0-2 /LPF (0-2); RBC Urine 0-2 /HPF (0-2); Squamous Epithelial Cell Urine 0-2 /HPF (0-2); WBC Urine 0-5 /HPF (0-5)
[2024-07-06 10:14] LABS: Alanine Aminotransferase 39 U/L (0-40); Albumin Level 4.6 g/dL (3.5-5.0); Alkaline Phosphatase 60 U/L (39-117); Anion Gap 14 (12-20); Aspartate Amino Transferase 32 U/L (5-37); Blood Urea Nitrogen 28 mg/dL (9-16); Calcium 9.8 mg/dL (8.4-10.2); Carbon Dioxide 27 mmol/L (22-29); Chloride 103 mmol/L (96-108); Cholesterol 196 mg/dL (<200); Estimated Glomerular Filt Rate > 60; Glucose Fasting 102 mg/dL (60-99); HDL Cholesterol 85 mg/dL (>40); LDL Cholesterol Calculated 100 mg/dL (<100); Potassium 4.4 mmol/L (3.3-5.1); Sodium 140 mmol/L (135-145); Total Protein 6.8 g/dL (6.5-8.0); Triglycerides 58 mg/dL (<150)
[2024-07-06 10:29] LABS: Prostate Specific Antigen 0.95 ng/mL (<0.05-4.0); TSH reflex Free T4 1.68 uIU/mL (0.32-4.0); Vitamin D 25-OH Total 91.6 ng/mL (>30)
== END 2024-07-06 08:55 | disposition home or self-care (01) ==
LOC: HO.LAB 08:54
PROVIDERS: PCP Internal Medicine; Visit Provider Internal Medicine
DX: D64.9 Anemia, unspecified (principal); N40.0 Benign prostatic hyperplasia without lower urinary tract symptoms; E78.00 Pure hypercholesterolemia, unspecified; E55.9 Vitamin D deficiency, unspecified; Z12.5 Encounter for screening for malignant neoplasm of prostate
CPT/HCPCS: 36415; 80053; 80061; 81001; 82306; 84153; 84443; 85025

== ENCOUNTER 2024-07-13 08:47 | Outpatient (AMB) | payer MEDICARE, SELFPAY ==
[2024-07-13 08:50] VITALS: BP 124/68; PULSE 63; O2SAT 96; BMI 23.0
--- NOTE | 2024-07-13 08:50 | A.OFFPC_ITS ---
Vital Signs 07/13/24 08:50 Height 5 ft 5 in Weight 138 lb 8 oz BMI 23.0 BP 124/68 Blood Pressure Location Lt brachial Position Sitting Pulse 63 Pulse Source Pulse Oximeter Pulse Oximetry (%) 96 Oxygen Delivery Method Room Air Intake Visit Reasons: BPH Actuary Clerk Required: No Accompanied by: Self / Same As Patient Allergies amoxicillin [AMOXICILLIN] Allergy (Unknown, Verified 07/13/24 09:13) RASH tree nut [TREE NUT] Allergy (Unknown, Verified 07/13/24 09:13) SWELLING MOUTH Medication List - Last Reconciled 07/13/24 by Bal Ramirez MD atorvastatin 20 mg PO BEDTIME 90 days cholecalciferol (vitamin D3) 25 mcg PO DAILY finasteride 1 mg PO DAILY 90 days Tobacco use date assessed: 07/13/24 Fall risk assessment: 2 + Falls in past year Last assessed Fall Risk: 07/13/24 Dental Screening Dental Screen Date: 07/13/24 Did you have a dental visit in the last 12 months?: Yes Did you have a dental problem in the last 6 months where you did not have access to dental care?: No Was dental information given to patient?: Patient has dentist HPI BPH HPI Details Patient comes in today for his follow up visit States that he feels okay He denies any headaches or dizziness Denies any chest pains, no SOB No nausea/vomiting, no abdominal pain No change in bowel habits noted He had his follow up labs done last week - to discuss his results [facility] Medical History (Updated 07/13/24 @ 12:04 by Bal Ramirez MD) Vitamin D deficiency Impaired fasting glucose External nasal lesion Pain and swelling of right knee GI bleed Overweight (BMI 25.0-29.9) Obstructive sleep apnea Allergic rhinitis Benign prostatic hyperplasia Pure hypercholesterolemia Surgical History History of arthroscopy of knee History of hernia repair Family History Father Prostate cancer Hypertension Hyperlipidemia Paternal Grandmother Diabetes mellitus Mother Hyperlipidemia Alzheimer's dementia Arthritis Social History Housing: House Alcohol intake: former Patient Tobacco Use Status: Never used Tobacco e-Cigarette/Vaping Use: Never Used Second Hand Smoke Exposure: No service: No Current occupational status: retired Cognitive needs: No Hearing needs: No Vision needs: Yes (reading glasses) Questionnaire PHQ-9 Over the last 2 weeks, how often have you been bothered by any of the following problems? 1. Little interest or pleasure in doing things: not at all 2. Feeling down, depressed, or hopeless: not at all 3. Trouble falling or staying asleep, or sleeping too much: not at all 4. Feeling tired or having little energy: not at all 5. Poor appetite or overeating: not at all 6. Feeling bad about yourself - or that you are a failure or have let yourself or your family down: not at all 7. Trouble concentrating on things, such as reading the newspaper or watching television: not at all 8. Moving or speaking so slowly that other people could have noticed. Or the opposite - being so fidgety or restless that you have been moving around a lot more than usual: not at all 9. Thoughts that you would be better off or of hurting yourself in some way: not at all Total score: 0 Depression Screening Interpretation: Negative Depression Screening Done: Yes 72214 - PHQ-9 Billing: Yes Source: Developed by Drs. Rocky Bennett, Susannah Gurrola, Eduardo Gordon and colleagues, with an educational gayathri from [employer]. Thrive Questionnaire Date Thrive assessed: 07/13/24 I am a: Patient What is your living situation today?: I have a steady place to live Within the past 12 months, did the food you bought not last and you didn't have the money to get more?: Never true Within the past 12 months, did you worry whether your food would run out before you got money to buy more?: Never true Do you have trouble paying for medicines?: No Do you have trouble getting transportation to medical appointments?: No Do you have trouble paying your heating and electricity bill?: No Do you have trouble taking care of your child, family member or friend?: No Do you have trouble with day-to-day activities such as bathing, preparing meals, shopping, managing finances, etc.?: No Are you currently unemployed and looking for a job?: No Are you interested in more education?: No Please select the resources that you would like help with: None Currently or been in a relationship where the following occur: No concerns reported THRIVE Score: 0 AUDIT C Alcohol Use Questionnaire (AUDIT-C) 1. How often do you have a drink containing alcohol?: Never 3. How often do you have six or more drinks on one occasion?: Never Total Score: 0 Score Reviewed/Action Taken: Yes MAYRA-7 AMB Questionnaire MAYRA-7 Date MAYRA - 7 assessed: 07/13/24 Feeling nervous, anxious, or on edge: 0 = Not at all Not being able to stop or control worryin = Not at all Worrying too much about different things: 0 = Not at all Trouble relaxin = Not at all Being so restless that it is hard to sit still: 0 = Not at all Becoming easily annoyed or irritable: 0 = Not at all Feeling afraid as if something awful might happen: 0 = Not at all Total MAYRA-7 score (0-4 normal; 5-9 mild; 10-14 moderate; 15-21 severe): 0 Source: Developed by Drs. Rocky Bennett, Susannah Gurrola, Eduardo Gordon and colleagues, with an educational gayathri from [employer]. Review of Systems Const Denies chills, Denies fatigue, Denies fever(s) and Denies headache(s) ENT Denies dysphagia, Denies dizziness, Denies otalgia, Denies headache(s), Denies neck pain, Denies odynophagia and Denies sore throat Card Denies chest pain, Denies palpitations and Denies dyspnea Resp Denies chest congestion, Denies cough and Denies dyspnea GI Denies abdominal pain, Denies constipation, Denies dysphagia, Denies heartburn, Denies diarrhea, Denies nausea, Denies odynophagia and Denies vomiting Denies dysuria, Reports nocturia (at times), Denies urinary frequency and Reports urinary hesitancy (mostly in the morning - takes him a long time to urinate) Musc Denies back pain and Denies neck pain Skin/Breast Denies rash Neuro Denies dizziness and Denies headache(s) Endo Denies fatigue and Denies palpitations Physical exam (Primary Care) Vital Signs: Last Vital Signs Pulse 63 07/13/24 08:50 BP 124/68 07/13/24 08:50 Pulse Ox 96 07/13/24 08:50 Oxygen Delivery Method Room Air 07/13/24 08:50 BMI result Body Mass Index 23.0 Tobacco/Smoking Status: Tobacco use Status Tobacco use date assessed 07/13/24 07/13/24 08:55 Patient Tobacco Use Status Never used Tobacco 07/13/24 08:55 e-Cigarette/Vaping Use Never Used 07/13/24 08:55 PHQ-9: PHQ-9 Score PHQ-9: Total score 0 07/13/24 09:21 Depression Screening Interpretation: Negative Thrive Assessment: Date of Thrive Assessment Date Thrive assessed 07/13/24 07/13/24 08:55 Currently or been in a relationship where the following occur: No concerns reported Const General: no acute distress and alert HENMT Ears: TM's normal bilaterally and EAC's normal Throat: Yes posterior oropharynx normal and Yes tonsils normal (no TP conge stion) Neck Neck: Yes no lymphadenopathy, Yes supple and No tender Thyroid: Thyroid normal Resp Auscultation: clear to auscultation bilaterally, no rales and no wheezes Cardio Rate: regular rate Rhythm: regular rhythm Heart sounds: no murmurs GI Palpation (GI): Soft to palpation and nontender Auscultation: normal bowel sounds General: Yes no CVA tenderness Back/Spine/Pelvis Back: no CVA tenderness Cervical Spine: No Cervical spine tenderness Thoracic/Lumbar Spine: No lumbar spinal tenderness Skin Rashes: no rashes Extrem General: Yes no clubbing, cyanosis or edema Results Reviewed Results Reviewed: Laboratory Tests 07/06/24 07/06/24 09:08 09:14 WBC 4.7 L Hgb 13.8 L Hct 40.9 L Plt Count 198 Sodium 140 Potassium 4.4 Creatinine 1.11 Estimated GFR > 60 Fasting Glucose 102 H Calcium 9.8 AST 32 ALT 39 Triglycerides 58 Cholesterol 196 LDL Cholesterol, Calc 100 H HDL Cholesterol 85 Prostate Specific Ag 0.95 25-OH Vitamin D Total 91.6 TSH 1.68 Ur Specific [place] 1.020 Urine Protein Negative Urine Glucose (UA) Negative Urine Blood Negative Urine Nitrite Negative Ur Leukocyte Esterase Trace H Coding Level of Care Code Est Pt Level 4 (69304) Diagnoses Pure hypercholesterolemia E78.00 Benign prostatic hyperplasia with urinary hesitancy N40.1; R39.11 Lower urinary tract symptom detail: urinary hesitancy Lower urinary tract symptom presence: symptoms present Allergic rhinitis, unspecified seasonality, unspecified trigger J30.9 Allergic rhinitis seasonality: unspecified Allergic rhinitis trigger: unspecified Anemia, unspecified type D64.9 Anemia type: unspecified type Obstructive sleep apnea G47.33 Elevated vitamin B12 level R74.8 Vitamin D deficiency E55.9 Impaired fasting glucose R73.01 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 Additional Codes PHQ-9 - 44026 - PHQ-9 Billing: Yes ([id number]) Assessment & Plan Assessment & Plan (1) Pure hypercholesterolemia: Code(s): E78.00 - Pure hypercholesterolemia, unspecified Category: Medical Plan: Results of his labs done last week reviewed and discussed with patient Reinforced low cholesterol diet Continue Atorvastatin 20 mg QD Will recheck his labs and fasting lipids in 6 months for follow up (2) Benign prostatic hyperplasia: Code(s): N40.0 - Benign prostatic hyperplasia without lower urinary tract symptoms Category: Medical Qualifiers: Lower urinary tract symptom detail: urinary hesitancy Lower urinary tract symptom presence: symptoms present Qualified Code(s): N40.1 - Benign prostatic hyperplasia with lower urinary tract symptoms; R39.11 - Hesitancy of micturition Plan: Patient reports that he still experiences urinary hesitancy and some difficulty urinating, most often in the morning - states that these symptoms have improved only slightly with Tamsulosin 0.4 mg Q HS so he eventually stopped taking the medication He has been taking Finasteride for a few years now but is taking the 1 mg dose daily mostly to prevent hair loss and NOT for any prostate issues His PSA was normal when it was checked back in June 2023 He had a retroperitoneal US done a couple of months ago (April 2024) that revealed a normal-sized prostate overall although there are multiple chunky calcifications seen in the prostate gland - have advised patient that this is often asymptomatic and its only clinical significance is that it can increase one's risk of prostatitis slightly Follow up with urology as scheduled (3) Allergic rhinitis: Code(s): J30.9 - Allergic rhinitis, unspecified Category: Medical Qualifiers: Allergic rhinitis seasonality: unspecified Allergic rhinitis trigger: unspecified Qualified Code(s): J30.9 - Allergic rhinitis, unspecified Plan: Continue Fluticasone 50 mcg nasal spray 1 to 2 sprays into each nostril QD PRN (4) Anemia: Code(s): D64.9 - Anemia, unspecified Category: Medical Qualifiers: Anemia type: unspecified type Qualified Code(s): D64.9 - Anemia, unspecified Plan: Patient again has mild anemia on his recent labs Based on review of his past lab results, he seem to get this once a year and his H/H always seem to revert back to normal or close to normal 6 months later on their own His RBC indices have remained normal over the years and his B12 level was also normal when previously checked Will continue to monitor his CBC routinely for now and if anything unusual occurs or changes, will then consider referring him to hematology for further evaluation (5) Obstructive sleep apnea: Comment: diagnosed 04/2010 Code(s): G47.33 - Obstructive sleep apnea (adult) (pediatric) Category: Medical Plan: Patient stopped using his CPAP device a couple of years ago and his reportedly told him that he has not been snoring as much lately He was referred to and seen by Sleep Medicine last year but as patient is feeling well, he is not interested in getting a repeat sleep study done and was reportedly advised to just use some OTC nasal strips when sleeping at night to help reduce his snoring and to just follow up with Sleep Medicine on an as- needed basis (6) Elevated vitamin B12 level: Code(s): R74.8 - Abnormal levels of other serum enzymes Category: Medical Plan: His Vitamin B12 level was significantly elevated previously at over 1200 pg/ml but this has come down now to just over 900 pg/ml recently Patient states that he has been taking OTC Vitamin B complex daily for years but stopped taking these last year Will continue to monitor his Vitamin B12 level routinely (7) Vitamin D deficiency: Code(s): E55.9 - Vitamin D deficiency, unspecified Category: Medical Plan: Corrected - continue OTC Vitamin D3 1000 units QD (8) Impaired fasting glucose: Code(s): R73.01 - Impaired fasting glucose Category: Medical Plan: His FBS is again slightly above the normal cut-off at 102 mg/dl; his previous FBS numbers were normal Have advised patient that at his current level, there are no concerns for diabetes but it would still be helpful for him to be cognizant of his overall carb intake and sweets Will continue to monitor his FBS regularly and if this continues to go up, will check his HgbA1c for further evaluation (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 Panel Fast 6 Months E78.00 - Pure hypercholesterolemia, unspecified Lipid Panel 6 Months E78.00 - Pure hypercholesterolemia, unspecified UA CC w/rflx Micro + Cult 6 Months R30.0 - Dysuria Vitamin D 25-OH Total 6 Months E55.9 - Vitamin D deficiency, unspecified Complete Blood Count Auto Diff 6 Months D64.9 - Anemia, unspecified TSH reflex Free T4 6 Months E78.00 - Pure hypercholesterolemia, unspecified Hemoglobin A1c 6 Months R73.01 - Impaired fasting glucose
== END 2024-07-13 09:32 | disposition home or self-care (01) ==
PROVIDERS: PCP Internal Medicine; Visit Provider Internal Medicine
DX: E78.00 Pure hypercholesterolemia, unspecified (principal); N40.1 Benign prostatic hyperplasia with lower urinary tract symptoms; R39.11 Hesitancy of micturition; J30.9 Allergic rhinitis, unspecified; D64.9 Anemia, unspecified; G47.33 Obstructive sleep apnea (adult) (pediatric); R74.8 Abnormal levels of other serum enzymes; E55.9 Vitamin D deficiency, unspecified; R73.01 Impaired fasting glucose; L90.5 Scar conditions and fibrosis of skin

== ENCOUNTER → 2024-07-13 08:47 | Outpatient (BNVA) | payer MEDICARE, SELFPAY | PROVIDERS: PCP Internal Medicine; Visit Provider Internal Medicine | DX: E78.00 Pure hypercholesterolemia, unspecified (principal); N40.1 Benign prostatic hyperplasia with lower urinary tract symptoms; R39.11 Hesitancy of micturition; J30.9 Allergic rhinitis, unspecified; D64.9 Anemia, unspecified; G47.33 Obstructive sleep apnea (adult) (pediatric); R74.8 Abnormal levels of other serum enzymes; E55.9 Vitamin D deficiency, unspecified; R73.01 Impaired fasting glucose; L90.5 Scar conditions and fibrosis of skin | CPT/HCPCS: 96127; 99212 ==

== ENCOUNTER 2025-01-06 10:17 | Outpatient (REF) | payer MEDICARE, SELFPAY ==
[2025-01-06 10:28] LABS: MANUAL DIFF FLAG NO
--- OUTSIDE RECORDS SUMMARY | 2025-01-06 10:37 | XMS_ITS | Patient Health Record ---
Author Organization [facility] Helenkike Felix Address [address] [place] [address] Care Team Providers Care Mutual Fund Manager Name Role Phone James VYAS, Bal Primary Care Provider Shravan Murcia Unavailable [phone] Allergies Allergen (clinical drug ingredient) Drug/Non Drug Allergy documented on EMR Reaction Allergy Type Onset Date Status Adhesive rash,redness Allergy Active amoxicillin Amoxicillin rash Drug Allergy Act mia Penicillin rash Drug Allergy Active Tree Nuts itchy mouth Allergy Active Reason For Referral No Information Medications Medication SIG (Take, Route, Frequency, Duration) Notes Start Date End Date Status Simvastatin 20 MG Oral for 30 Not-Taking Finasteride 1 MG 1 tablet Orally Once a day for 30 day(s) Active Atorvastatin Calcium 20 MG 1 tablet Orally Once a day for 30 day(s) Active Immunizations Vaccine Route Administration Date Status Comme nts COVID-19 Pfizer BioNTech Vaccine Unknown 07/15/2021 Administered 1st 11/12/20 2nd 12/03/20 Influenza Unknown 07/30/2021 Refused Social History Tobacco Use: Social History Observation Description Date Details (start date - stop date) Never Smoker NA - NA Tobacco Use/Smoking Question Answer Notes Are you a: nonsmoker Alcohol Screen Question Answer Notes Did you have a drink containing alcohol in the p ast year? No Points 0 Interpretation Negative Tobacco use other than smoking: Question Answer Notes Are you an other tobacco user? No Problems Problem Type SNOMED Code ICD Code Onset Dates Problem Status W/U Status Risk Notes Problem Plantar wart (94488209) Plantar wart (B07.0) Active confirmed Plan Of Treatment Pending Test Test Name Order Date [id number] Destruction, 1-14 07/30/2021 [id number] Destruction, 1-06/10/2022 Insurance Providers Payer Name Payer Address Payer Phone Subscriber Number Group Number Insured Name Patient Relationship to Insured Coverage Start Date Coverage End Date BlueCare 65 Medicare Preferred [address] [place] [address] [id number] Eliel Meek Self - patient is the insured Medical (General) History Medical History History ICD Code CAD (Cholesterol) Diverticulosis Lyme disease chronic sinusitis Warts Measles Mumps Chicken pox Transfusions Sleep apnea Surgical History Surgery Date(Month/Year) inguinal hernia repair Laparoscopy 04/13/18 ventral hernia repair 01/19/18 right knee arthroscopy 05/30/16 knee surgery, left 07/07/14
[2025-01-06 11:21] LABS: Basophils Percent Auto 0.7 % (0-2); Eosinophils Absolute Auto 0.2 X10*3/uL (0.0-0.4); Eosinophils Percent Auto 2.7 % (0-4); Hematocrit 39.4 % (42.0-52.0); Hemoglobin 13.5 g/dl (14.0-18.0); Imm Gran Abs Auto 0.01 X10*3/uL (0.00-0.03); Imm Gran Pct Auto 0.2 % (0.0-0.4); Lymphocytes Absolute Auto 2.3 X10*3/uL (1.2-4.9); Lymphocytes Percent Auto 41.7 % (20-40); Mean Corpuscular HGB Conc 34.3 g/dl (31.0-36.0); Mean Corpuscular Hemoglobin 30.9 pg (27.0-33.0); Mean Corpuscular Volume 90.2 fL (80.0-98.0); Mean Platelet Volume 9.9 fL (9.4-12.4); Monocytes Absolute Auto 0.4 X10*3/uL (0.1-1.2); Monocytes Percent Auto 7.3 % (2-11); Neutrophils Absolute Auto 2.6 x10*3/uL (2.0-8.3); Neutrophils Percent Auto 47.4 % (45-73); Platelet Count 186 X10*3/uL (160-400); Red Blood Count 4.37 X10*6/uL (4.60-5.80); Red Cell Distribution Width 12.2 % (11.0-16.0); White Blood Count 5.5 X10*3/uL (4.8-10.8)
[2025-01-06 11:34] LABS: Estimated Average Glucose 117 mg/dL; Hemoglobin A1C 131.1566 umol/L; Hemoglobin A1c % 5.7 % (<6.0)
[2025-01-06 12:00] LABS: Appearance Urine Clear; Color Urine Yellow; Glucose Urine UA Negative (Negative); Leukocyte Esterase Urine Negative (Negative); Nitrite Urine Negative (Negative); PH 5.5 (5.0-9.0); Specific Gravity - Urine 1.025 (1.005-1.025); Urine Blood Negative (Negative); Urine Ketones Negative (Negative); Urine Protein Negative (Neg-Trace)
[2025-01-06 12:47] LABS: Alanine Aminotransferase 36 U/L (0-40); Albumin Level 4.4 g/dL (3.5-5.0); Alkaline Phosphatase 66 U/L (39-117); Anion Gap 10 (12-20); Aspartate Amino Transferase 26 U/L (5-37); Bilirubin Total 0.9 mg/dL (0.0-1.0); Blood Urea Nitrogen 29 mg/dL (9-16); Calcium 9.6 mg/dL (8.4-10.2); Carbon Dioxide 28 mmol/L (22-29); Chloride 108 mmol/L (96-108); Cholesterol 204 mg/dL (<200); Estimated Glomerular Filt Rate > 60; Glucose Fasting 93 mg/dL (60-99); HDL Cholesterol 82 mg/dL (>40); LDL Cholesterol Calculated 109 mg/dL (<100); Potassium 4.3 mmol/L (3.3-5.1); Sodium 142 mmol/L (135-145); TSH reflex Free T4 3.45 uIU/mL (0.32-4.0); Total Protein 6.5 g/dL (6.5-8.0); Triglycerides 65 mg/dL (<150); Vitamin D 25-OH Total 79.4 ng/mL (>30)
== END 2025-01-06 10:18 | disposition home or self-care (01) ==
LOC: HO.LAB 10:17
PROVIDERS: PCP Internal Medicine; Visit Provider Internal Medicine
DX: R30.0 Dysuria (principal); D64.9 Anemia, unspecified; R73.01 Impaired fasting glucose; E78.00 Pure hypercholesterolemia, unspecified; E55.9 Vitamin D deficiency, unspecified
CPT/HCPCS: 36415; 80053; 80061; 81003; 82306; 83036; 84443; 85025

== ENCOUNTER 2025-01-11 08:49 | Outpatient (AMB) | payer MEDICARE, SELFPAY ==
[2025-01-11 08:51] VITALS: BP 130/92; PULSE 67; O2SAT 96; BMI 24.0
--- NOTE | 2025-01-11 08:51 | MHC.PC.OV ---
Vital Signs 01/11/25 08:51 Height 5 ft 5 in Weight 144 lb BMI 24.0 BP 130/92 H Blood Pressure Location Lt brachial Position Sitting Pulse 67 Pulse Source Pulse Oximeter Pulse Oximetry (%) 96 Oxygen Delivery Method Room Air Intake Visit Reasons: 6mth f/u Personal Coach Required: No Accompanied by: Self / Same As Patient Allergies amoxicillin [AMOXICILLIN] Allergy (Unknown, Verified 01/11/25 09:28) RASH tree nut [TREE NUT] Allergy (Unknown, Verified 01/11/25 09:28) SWELLING MOUTH Medication List - Last Reconciled 01/11/25 by Bal Ramirez MD atorvastatin 20 mg PO BEDTIME 90 days cholecalciferol (vitamin D3) 25 mcg PO DAILY finasteride 1 mg PO DAILY 90 days Tobacco use date assessed: 01/11/25 Fall risk assessment: No Falls in past year Last assessed Fall Risk: 01/11/25 Dental Screening Dental Screen Date: 01/11/25 Did you have a dental visit in the last 12 months?: Yes Did you have a dental problem in the last 6 months where you did not have access to dental care?: No Was dental information given to patient?: Patient has dentist HPI 6mth f/u HPI Details Patient comes in today for his follow up visit States that he feels okay except for frequent increased left knee pain and occasional swelling lately He denies any recent injury or trauma to his left knee but states that he did have a significant injury to his left knee many years ago He denies any headaches or dizziness Denies any chest pains, no SOB No nausea/vomiting, no abdominal pain No change in bowel habits noted He had his follow up labs done a few days ago - to discuss his results [facility] Medical History (Updated 01/11/25 @ 09:51 by Bal Ramirez MD) Vitamin D deficiency Impaired fasting glucose External nasal lesion Pain and swelling of right knee GI bleed Overweight (BMI 25.0-29.9) Obstructive sleep apnea Allergic rhinitis Benign prostatic hyperplasia Pure hypercholesterolemia Surgical History (Updated 01/11/25 @ 09:38 by Bal Ramirez MD) History of colonoscopy History of arthroscopy of knee History of hernia repair Family History Father Prostate cancer Hypertension Hyperlipidemia Paternal Grandmother Diabetes mellitus Mother Hyperlipidemia Alzheimer's dementia Arthritis Social History Housing: House Alcohol intake: former Patient Tobacco Use Status: Never used Tobacco e-Cigarette/Vaping Use: Never Used Second Hand Smoke Exposure: No service: No Current occupational status: retired Cognitive needs: No Hearing needs: No Vision needs: Yes (reading glasses) Questionnaire PHQ-9 Over the last 2 weeks, how often have you been bothered by any of the following problems? 1. Little interest or pleasure in doing things: not at all 2. Feeling down, depressed, or hopeless: not at all 3. Trouble falling or staying asleep, or sleeping too much: not at all 4. Feeling tired or having little energy: not at all 5. Poor appetite or overeating: not at all 6. Feeling bad about yourself - or that you are a failure or have let yourself or your family down: not at all 7. Trouble concentrating on things, such as reading the newspaper or watching television: not at all 8. Moving or speaking so slowly that other people could have noticed. Or the opposite - being so fidgety or restless that you have been moving around a lot more than usual: not at all 9. Thoughts that you would be better off or of hurting yourself in some way: not at all Total score: 0 Depression Screening Interpretation: Negative Depression Screening Done: Yes 69508 - PHQ-9 Billing: Yes Source: Developed by Drs. Rocky Bennett, Susannah Gurrola, Eduardo Gordon and colleagues, with an educational gayathri from [employer]. Thrive Questionnaire Date Thrive assessed: 01/11/25 I am a: Patient What is your living situation today?: I have a steady place to live Within the past 12 months, did the food you bought not last and you didn't have the money to get more?: Never true Within the past 12 months, did you worry whether your food would run out before you got money to buy more?: Never true Do you have trouble paying for medicines?: No Do you have trouble getting transportation to medical appointments?: No Do you have trouble paying your heating and electricity bill?: No Do you have trouble taking care of your child, family member or friend?: No Do you have trouble with day-to-day activities such as bathing, preparing meals, shopping, managing finances, etc.?: No Are you currently unemployed and looking for a job?: No Are you interested in more education?: No Please select the resources that you would like help with: None Currently or been in a relationship where the following occur: No concerns reported THRIVE Score: 0 AUDIT C Alcohol Use Questionnaire (AUDIT-C) 1. How often do you have a drink containing alcohol?: Never 3. How often do you have six or more drinks on one occasion?: Never Total Score: 0 Score Reviewed/Action Taken: Yes MAYRA-7 AMB Questionnaire MAYRA-7 Date MAYRA - 7 assessed: 01/11/25 Feeling nervous, anxious, or on edge: 0 = Not at all Not being able to stop or control worryin = Not at all Worrying too much about different things: 0 = Not at all Trouble relaxin = Not at all Being so restless that it is hard to sit still: 0 = Not at all Becoming easily annoyed or irritable: 0 = Not at all Feeling afraid as if something awful might happen: 0 = Not at all Total MAYRA-7 score (0-4 normal; 5-9 mild; 10-14 moderate; 15-21 severe): 0 Source: Developed by Drs. Rocky Bennett, Susannah Gurrola, Eduardo Gordon and colleagues, with an educational gayathri from [employer]. Review of Systems Const Denies chills, Denies fatigue, Denies fever(s) and Denies headache(s) ENT Denies dysphagia, Denies dizziness, Denies otalgia, Denies headache(s), Denies neck pain, Denies odynophagia and Denies sore throat Card Denies chest pain, Denies palpitations and Denies dyspnea Resp Denies chest congestion, Denies cough and Denies dyspnea GI Denies abdominal pain, Denies constipation, Denies dysphagia, Denies heartburn, Denies diarrhea, Denies nausea, Denies odynophagia and Denies vomiting Denies dysuria, Reports nocturia (at times), Denies urinary frequency and Reports urinary hesitancy (mostly in the morning - takes him a long time to urinate) Musc Denies back pain, Reports arthralgias (left knee - see HPI), Reports joint swelling (on and off in the left knee) and Denies neck pain Skin/Breast Denies rash Neuro Denies dizziness and Denies headache(s) Endo Denies fatigue and Denies palpitations Physical exam (Primary Care) Vital Signs: Last Vital Signs Pulse 67 01/11/25 08:51 BP 130/92 H 01/11/25 08:51 Pulse Ox 96 01/11/25 08:51 Oxygen Delivery Method Room Air 01/11/25 08:51 BMI result Body Mass Index 24.0 Tobacco/Smoking Status: Tobacco use Status Tobacco use date assessed 01/11/25 01/11/25 08:55 Patient Tobacco Use Status Never used Tobacco 01/11/25 08:55 e-Cigarette/Vaping Use Never Used 01/11/25 08:55 PHQ-9: PHQ-9 Score PHQ-9: Total score 0 01/11/25 08:55 Depression Screening Interpretation: Negative Thrive Assessment: Date of Thrive Assessment Date Thrive assessed 01/11/25 01/11/25 08:55 Currently or been in a relationship where the following occur: No concerns reported Const General: no acute distress and alert HENMT Ears: TM's normal bilaterally and EAC's normal Throat: Yes posterior oropharynx normal and Yes tonsils normal (no TP congestion) Neck Neck: Yes supple, No lymphadenopathy and No tender Thyroid: Thyroid normal Resp Auscultation: clear to auscultation bilaterally, no rales and no wheezes Cardio Rate: regular rate Rhythm: regular rhythm Heart sounds: no murmurs GI Palpation (GI): Soft to palpation and nontender Auscultation: normal bowel sounds General: Yes no CVA tenderness Back/Spine/Pelvis Back: no CVA tenderness Cervical Spine: No Cervical spine tenderness Thoracic/Lumbar Spine: No lumbar spinal tenderness Skin Rashes: no rashes Extrem General: Yes no clubbing, cyanosis or edema Left lower extremity: knee (mild) Details: tenderness Location: of the pre-patellar area (mostly on the lateral side) Results Reviewed Results Reviewed: Laboratory Tests 01/06/25 01/06/25 10:22 10:27 WBC 5.5 Hgb 13.5 L Hct 39.4 L Plt Count 186 Sodium 142 Potassium 4.3 Creatinine 0.94 Estimated GFR > 60 Fasting Glucose 93 Hemoglobin A1c % 5.7 Calcium 9.6 AST 26 ALT 36 Triglycerides 65 Cholesterol 204 H LDL Cholesterol, Calc 109 H HDL Cholesterol 82 25-OH Vitamin D Total 79.4 TSH 3.45 Ur Specific [place] 1.025 Urine Protein Negative Urine Glucose (UA) Negative Urine Blood Negative Urine Nitrite Negative Ur Leukocyte Esterase Negative Coding Level of Care Code Est Pt Level 4 (03160) Diagnoses Pure hypercholesterolemia E78.00 Impaired fasting glucose R73.01 Elevated blood pressure reading in office without diagnosis of hypertension R03.0 Benign prostatic hyperplasia with urinary hesitancy N40.1; R39.11 Lower urinary tract symptom presence: symptoms present Lower urinary tract symptom detail: urinary hesitancy Allergic rhinitis, unspecified seasonality, unspecified trigger J30.9 Allergic rhinitis trigger: unspecified Allergic rhinitis seasonality: unspecified Anemia, unspecified type D64.9 Anemia type: unspecified type Obstructive sleep apnea G47.33 Elevated vitamin B12 level R74.8 Vitamin D deficiency E55.9 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 Left knee pain, unspecified chronicity M25.562 Chronicity: unspecified Additional Codes PHQ-9 - 49939 - PHQ-9 Billing: Yes ([id number]) Assessment & Plan Assessment & Plan (1) Pure hypercholesterolemia: Code(s): E78.00 - Pure hypercholesterolemia, unspecified Category: Medical Plan: Results of his labs done a few days ago reviewed and discussed with patient - have advised patient that his cholesterol level has increased slightly from previous Reinforced low cholesterol diet Continue Atorvastatin 20 mg QD Will recheck his labs and fasting lipids in 6 months for follow up (2) Impaired fasting glucose: Code(s): R73.01 - Impaired fasting glucose Category: Medical Plan: His FBS is normal at 93 mg/dl but his HgbA1c has increased to 5.7% on his recent labs Have advised patient to be more cognizant of his overall carb intake and sweets Will continue to monitor his FBS and HgbA1c regularly (3) Elevated blood pressure reading in office without diagnosis of hypertension: Code(s): R03.0 - Elevated blood-pressure reading, without diagnosis of hypertension Category: Medical Plan: Patient is advised that his blood pressure is high in the office today and that this is likely related to his recent weight gain Reinforced low sodium diet Have instructed patient to try to monitor his blood pressure regularly (4) Benign prostatic hyperplasia: Code(s): N40.0 - Benign prostatic hyperplasia without lower urinary tract symptoms Category: Medical Qualifiers: Lower urinary tract symptom presence: symptoms present Lower urinary tract symptom detail: urinary hesitancy Qualified Code(s): N40.1 - Benign prostatic hyperplasia with lower urinary tract symptoms; R39.11 - Hesitancy of micturition Plan: Patient reports that he still experiences urinary hesitancy and some difficulty urinating, most often in the morning - states that these symptoms have improved only slightly with Tamsulosin 0.4 mg Q HS so he eventually stopped taking the medication He has been taking Finasteride for a few years now but is taking the 1 mg dose daily mostly to prevent hair loss and NOT for any prostate issues His PSA was normal when it was checked back in June 2024 He had a retroperitoneal US done in April 2024 that revealed a normal-sized prostate overall although there are multiple chunky calcifications seen in the prostate gland - have advised patient again that this is often asymptomatic and its only clinical significance is that it can increase one's risk of prostatitis slightly Follow up with urology as scheduled (5) Allergic rhinitis: Code(s): J30.9 - Allergic rhinitis, unspecified Category: Medical Qualifiers: Allergic rhinitis trigger: unspecified Allergic rhinitis seasonality: unspecified Qualified Code(s): J30.9 - Allergic rhinitis, unspecified Plan: Continue Fluticasone 50 mcg nasal spray 1 to 2 sprays into each nostril QD PRN (6) Anemia: Code(s): D64.9 - Anemia, unspecified Category: Medical Qualifiers: Anemia type: unspecified type Qualified Code(s): D64.9 - Anemia, unspecified Plan: Patient again has mild anemia on his recent labs Based on review of his past lab results, he seem to get this once a year and his H/H always seem to revert back to normal or close to normal 6 months later on their own His RBC indices have remained normal over the years and his B12 level was also normal when previously checked Will continue to monitor his CBC routinely for now and if anything unusual occurs or changes, will then consider referring him to hematology for further evaluation (7) Obstructive sleep apnea: Comment: diagnosed 04/2010 Code(s): G47.33 - Obstructive sleep apnea (adult) (pediatric) Category: Medical Plan: Patient stopped using his CPAP device a couple of years ago and his reportedly told him that he has not been snoring as much lately He was referred to and seen by Sleep Medicine last year but as patient is feeling well, he is not interested in getting a repeat sleep study done and was reportedly advised to just use some OTC nasal strips when sleeping at night to help reduce his snoring and to just follow up with Sleep Medicine on an as-needed basis (8) Elevated vitamin B12 level: Code(s): R74.8 - Abnormal levels of other serum enzymes Category: Medical Plan: His Vitamin B12 level was significantly elevated previously at over 1200 pg/ml but this has come down now to just over 900 pg/ml when it was last checked Patient states that he has been taking OTC Vitamin B complex daily for years but stopped taking these last year Will continue to monitor his Vitamin B12 level routinely (9) Vitamin D deficiency: Code(s): E55.9 - Vitamin D deficiency, unspecified Category: Medical Plan: Continue OTC Vitamin D3 1000 units QD (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 - Scar conditions and fibrosis of skin Category: Medical Plan: S/P excision from the right side of the nose by dermatology in 2020; he has had NO recurrence of his nasal skin lesion since Reinforced avoidance of sun exposure (11) Left knee pain: Code(s): M25.562 - Pain in left knee Category: Medical Qualifiers: Chronicity: unspecified Qualified Code(s): M25.562 - Pain in left knee Plan: Will send patient for x-rays of the left knee for further evaluation Will also refer him to orthopedics for further evaluation and management Plan Follow up in 6 months Orders: Orders XR knee LT 4V Today M25.562 - Pain in left knee Comprehensive [place]. Panel Fast 6 Months E78.00 - Pure hypercholesterolemia, unspecified Lipid Panel 6 Months E78.00 - Pure hypercholesterolemia, unspecified Vitamin D 25-OH Total 6 Months E55.9 - Vitamin D deficiency, unspecified Vitamin B12 and Folate 6 Months E53.8 - Deficiency of other specified B group vitamins Complete Blood Count Auto Diff 6 Months D64.9 - Anemia, unspecified TSH reflex Free T4 6 Months E78.00 - Pure hypercholesterolemia, unspecified UA CC w/rflx Micro + Cult 6 Months R30.0 - Dysuria Prostate Specific Antigen 6 Months N40.0 - Benign prostatic hyperplasia without lower urinary tract symptoms Hemoglobin A1c 6 Months R73.01 - Impaired fasting glucose Referrals Orthopedics Referral M25.562 - Pain in left knee
--- OUTSIDE RECORDS SUMMARY | 2025-01-11 10:05 | XMS_ITS | Patient Health Record ---
Author Organization [facility] Helenkike Felix Address [address] [place] [address] Care Team Providers Care System Administrator Name Role Phone James VYAS, Bal Primary Care Provider Shravan Murcia Unavailable [phone] Allergies Allergen (clinical drug ingredient) Drug/Non Drug [...] W/U Status Risk Notes Problem Plantar wart ([id number]) Plantar wart (B07.0) Active confirmed Plan Of Treatment Pending Test Test Name Order Date [id number] Destruction, 1-14 07/30/2021 [id number] Destruction, 1-06/10/2022 Insurance Providers Payer Name Payer Address Payer Phone Subscriber Number Group Number Insured Name Patient Relationship to Insured Coverage Start Date Coverage End Date BlueCare 65 Medicare Preferred [address] [place] [address] [id number] Eliel Meek Self - patient is the insured Medical (General) History Medical History History ICD Code CAD (Cholesterol) Diverticulosis Lyme disease chronic sinusitis Warts Measles Mumps Chicken pox Transfusions Sleep apnea Surgical History Surgery Date(Month/Year) inguinal hernia repair Laparoscopy 04/13/18 ventral hernia repair 01/19/18 right knee arthroscopy 05/30/16 knee surgery, left 07/07/14
== END 2025-01-11 09:42 | disposition home or self-care (01) ==
LOC: HO.HMCH 08:49
PROVIDERS: PCP Internal Medicine; Visit Provider Internal Medicine
DX: E78.00 Pure hypercholesterolemia, unspecified (principal); R73.01 Impaired fasting glucose; R03.0 Elevated blood-pressure reading, without diagnosis of hypertension; N40.1 Benign prostatic hyperplasia with lower urinary tract symptoms; R39.11 Hesitancy of micturition; J30.9 Allergic rhinitis, unspecified; D64.9 Anemia, unspecified; G47.33 Obstructive sleep apnea (adult) (pediatric); R74.8 Abnormal levels of other serum enzymes; E55.9 Vitamin D deficiency, unspecified; L90.5 Scar conditions and fibrosis of skin; M25.562 Pain in left knee

== ENCOUNTER → 2025-01-11 08:49 | Outpatient (BNVA) | payer MEDICARE, SELFPAY | PROVIDERS: PCP Internal Medicine; Visit Provider Internal Medicine | DX: M25.562 Pain in left knee (principal); E78.00 Pure hypercholesterolemia, unspecified; R73.01 Impaired fasting glucose; R03.0 Elevated blood-pressure reading, without diagnosis of hypertension; N40.1 Benign prostatic hyperplasia with lower urinary tract symptoms; R39.11 Hesitancy of micturition; J30.9 Allergic rhinitis, unspecified; D64.9 Anemia, unspecified; G47.33 Obstructive sleep apnea (adult) (pediatric); R74.8 Abnormal levels of other serum enzymes; E55.9 Vitamin D deficiency, unspecified; L90.5 Scar conditions and fibrosis of skin; E53.8 Deficiency of other specified B group vitamins | CPT/HCPCS: 96127; 99212 ==

== ENCOUNTER 2025-02-20 13:22 | Outpatient (REF) | payer MEDICARE, SELFPAY ==
--- NOTE | ~2025-02-20 | XR_ITS ---
EXAMINATION: XR KNEE 4 OR MORE VIEWS LEFT HISTORY: M25.562 - Pain in left knee COMPARISON: There are no prior studies available for comparison. FINDINGS: Four views of the left knee are submitted. Osseous mineralization is normal. There is no fracture or dislocation. There is mild narrowing of the medial and patellofemoral compartments. There is a small joint effusion. XR/XR knee LT 4V IMPRESSION: Small joint effusion. Mild degenerative change of the medial and patellofemoral compartments. Electronically signed by: Rocky Saba MD 02/20/2025 02:17 PM EDT
--- OUTSIDE RECORDS SUMMARY | 2025-02-20 13:48 | XMS_ITS | Patient Health Record ---
Author Organization [facility] Helenkike Felix Address [address] [place] [address] Care Team Providers Care Fine Grade Bulldozer Operator Name Role Phone Bal Ramirez MD Primary Care Provider Shravan Murcia Unavailable [phone] Allergies Allergen (clinical drug ingredient) Drug/Non Drug Allergy documented on EMR Reaction Allergy Type Onset Date Status Adhesive rash,redness Allergy Active amoxicillin Amoxicillin rash Drug Allergy Act mia Penicillin rash Drug Allergy Active Tree Nuts itchy mouth Allergy Active Reason For Referral No Information Medications Medication SIG (Take, Route, Frequency, Duration) Notes Start Date End Date Status Simvastatin 20 MG Oral; Duration: 30 Not-Taking Finasteride 1 MG 1 tablet Orally Once a day; Duration: 30 day(s) Active Atorvastatin Calcium 20 MG 1 tablet Orally Once a day; Duration: 30 day(s) Active Immunizations Vaccine Route Administration [...] W/U Status Risk Notes Problem Plantar wart (B07.0) Active confirmed Plan Of Treatment Pending Test Test Name Order Date [id number] Destruction, -07/30/2021 [id number] Destruction, -06/10/2022 Insurance Providers Payer Name Payer Address Payer Phone Subscriber Number Group Number Insured Name Patient Relationship to Insured Coverage Start Date Coverage End Date BlueCare 65 Medicare Preferred [address] [place] [address] [id number] Eliel Meek Self - patient is the insured Medical (General) History Medical History History ICD Code CAD (Cholesterol) Diverticulosis Lyme disease chronic sinusitis Warts Measles Mumps Chicken pox Transfusions Sleep apnea Surgical History Surgery Date(Month/Year) inguinal hernia repair Laparoscopy 04/13/18 ventral hernia repair 01/19/18 right knee arthroscopy 05/30/16 knee surgery, left 07/07/14
== END 2025-02-20 13:23 | disposition home or self-care (01) ==
LOC: HO.HMGCX 13:22
PROVIDERS: PCP Internal Medicine; Visit Provider Internal Medicine
DX: M25.562 Pain in left knee (principal)
CPT/HCPCS: 73564

== ENCOUNTER → 2025-02-20 13:24 | Outpatient (BNV) | payer MEDICARE, SELFPAY | PROVIDERS: PCP Internal Medicine; Visit Provider Radiology Diagnostic Radiology | DX: M25.461 Effusion, right knee (principal) | CPT/HCPCS: 73564 ==

== ENCOUNTER 2025-03-31 08:05 | Outpatient (REF) | payer MEDICARE, SELFPAY ==
--- NOTE | ~2025-03-31 | XR_ITS ---
EXAMINATION: XR KNEE AP STANDING CLINICAL INFORMATION: M25.569 - Pain in unspecified knee COMPARISON: None available. TECHNIQUE: AP bilateral standing view of the knees was obtained. FINDINGS: No fracture, dislocation, or malalignment. No bone lesion. Mild medial and lateral compartmental joint space narrowing in both knees. Minimal spurring of the medial tibial spines. Normal soft tissues. XR/XR knee standing BI IMPRESSION: Bilateral knees demonstrating mild joint space narrowing in the medial and lateral compartments symmetrically. Electronically signed by: Pradip Carrera MD 03/31/2025 02:07 PM EDT
== END 2025-03-31 08:06 | disposition home or self-care (01) ==
LOC: HO.HOSX 08:05
PROVIDERS: Visit Provider Physician Assistant
DX: M17.12 Unilateral primary osteoarthritis, left knee (principal)
CPT/HCPCS: 73565; 99202

== ENCOUNTER 2025-03-31 13:30 | Outpatient (AMB) | payer MEDICARE, SELFPAY ==
--- OUTSIDE RECORDS SUMMARY | 2025-03-31 13:34 | XMS_ITS | Patient Health Record ---
Author Organization [facility] Helenkike Felix Address [address] [place] [address] Care Team Providers Care Director Industrial [employer] Name Role Phone Bal Ramirez MD Primary Care Provider Shravan Murcia Unavailable [phone] Allergies Allergen (clinical drug ingredient) Drug/Non Drug [...] Vaccine Route Administration Date Status Comme nts Influenza Unknown 07/30/2021 Refused COVID-19 Pfizer BioNTech Vaccine Unknown 07/15/2021 Administered 1st 11/12/20 2nd 12/03/20 Social History Tobacco Use: Social History Observation [...] Treatment Pending Test Test Name Order Date [id number] Destruction, -07/30/2021 [id number] Destruction, -06/10/2022 Insurance Providers Payer Name Payer Address Payer Phone Subscriber Number Group Number Insured Name Patient Relationship to Insured Coverage Start Date Coverage End Date BlueCare 65 Medicare Preferred [address] [place] [address] [phone] [id number] Eliel Meek Self - patient is the insured Medical (General) History Medical History History ICD Code CAD (Cholesterol) Diverticulosis Lyme disease chronic sinusitis Warts Measles Mumps Chicken pox Transfusions Sleep apnea Surgical History Surgery Date(Month/Year) inguinal hernia repair Laparoscopy 04/13/18 ventral hernia repair 01/19/18 right knee arthroscopy 05/30/16 knee surgery, left 07/07/14
--- NOTE | 2025-03-31 13:39 | A.OFFVIS_ITS ---
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 07/07/14 left knee arthroscopy (patient had a torn meniscus) and 05/30/16 right knee arthroscopy (torn meniscus) both done at [place], [place]. Patient reports he is not having much pain today. He feels like his knee is not stable, when he is stretching before exercising. Patient reports having pain when pressure is applied to his knee. Patient doesn't take any medications to help with pain at the moment. 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 Gaviota amador is a 69-year-old male who presents to the office today for evaluation of left knee pain and swelling. This waxes and wanes but has been more frequently lately. Patient reports a history of a left knee arthroscopy performed on 07/07/2014. Additionally, he also sustained a 2nd arthroscopy on 05/30/16 for the right knee. Both of the surgeries were performed in [place], [place]. Patient denies any recent injury or trauma to the left knee. [facility] Medical History (Updated 03/31/25 @ 13:57 by Mini Keen PA-C) Vitamin D deficiency Impaired fasting glucose External nasal lesion Pain and swelling of right knee GI bleed Overweight (BMI 25.0-29.9) Obstructive sleep apnea Allergic rhinitis Benign prostatic hyperplasia Pure hypercholesterolemia Surgical History (Updated 01/11/25 @ 09:38 by Bal Ramirez MD) History of colonoscopy History of arthroscopy of knee History of hernia repair Family History Father Prostate cancer Hypertension Hyperlipidemia Paternal Grandmother Diabetes mellitus Mother Hyperlipidemia Alzheimer's dementia Arthritis Social History Housing: House Alcohol intake: former Patient Tobacco Use Status: Never used Tobacco e-Cigarette/Vaping Use: Never Used Second Hand Smoke Exposure: No service: No Current occupational status: retired Cognitive needs: No Hearing needs: No Vision needs: Yes (reading glasses) Review of Systems Const All systems reviewed & are unremarkable except as noted in HPI and below Physical Exam Const General: cooperative, healthy appearing and no acute distress Resp Effort & Inspection: normal respiratory effort and able to speak in complete sentences Extrem Other: Left knee: Able to perform [id number] to end range in all planes. Ambulation is without antalgic gait. NVI. Psych Appearance: grossly normal Mental Status: mental status grossly normal Attitude: cooperative Assessment & Plan Assessment & Plan (1) Osteoarthritis of left knee: Code(s): M17.12 - Unilateral primary osteoarthritis, left knee Category: Medical Plan Mr. Meek this is a 69-year-old male who presents to the office today for evaluation of left knee pain and swelling. This waxes and wanes but has been more frequently lately. Patient reports a history of a left knee arthroscopy performed on 07/07/2014. Additionally, he also sustained a 2nd arthroscopy on 05/30/16 for the right knee. Both of the surgeries were performed in [place], [place]. Patient denies any recent injury or trauma to the left knee. While in the office today, the patient is not experiencing any pain at this time. We discussed the x-ray findings were significant for arthritis presenting most in the patellofemoral joint. We discussed the role of physical therapy and cortisone injection. However at this time the patient is working with a color strainer that modifies activities as needed. Additionally the patient is not experiencing any pain so a cortisone injection was deferred at this time. He will follow up PRN, sooner if needed. X-rays of the bilateral knee standing which were obtained while in the office today and were reviewed by me, Mini Keen PA-C, as well as additional views that were obtained on 02/20/2025 are negative for any acute fracture. Arthritic changes noted. Orders: Orders XR knee standing BI Today M25.569 - Pain in unspecified knee Coding Level of Care Code New Pt Level 3 (50288) Diagnoses Osteoarthritis of left knee M17.12
[2025-03-31 14:02] VITALS: BMI 24.0
== END 2025-03-31 14:48 | disposition home or self-care (01) ==
LOC: HO.HOS 13:30
PROVIDERS: PCP Internal Medicine; Visit Provider Physician Assistant
DX: M17.12 Unilateral primary osteoarthritis, left knee (principal)
CPT/HCPCS: 99203

== ENCOUNTER → 2025-03-31 13:31 | Outpatient (BNV) | payer MEDICARE, SELFPAY | PROVIDERS: Visit Provider Radiology Diagnostic Radiology | DX: M17.0 Bilateral primary osteoarthritis of knee (principal) | CPT/HCPCS: 73565 ==

== ENCOUNTER 2025-05-30 08:24 | Outpatient (AMB) | payer MEDICARE, SELFPAY ==
--- NOTE | 2025-05-30 08:28 | MHC.OFFVIS ---
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 Ramirez. He has a past medical history of vitamin-D deficiency, obstructive sleep apnea, hypercholesteremia, allergic rhinitis, and BPH. He presents to the office today for follow-up of his lower urinary tract symptoms. In discussion with the patient today reports to be doing and feeling well. He denies having had any bothersome urinary issues or concerns since his last office visit here over 1 year ago. He does report at times he experiences an episode of nocturia however describes these episodes as infrequent and self managing. Unable to obtain urine for urinalysis today as patient unable to void however PVR 0 mL. Previous workup has included a retroperitoneal ultrasound 05/17 noting bilateral kidneys with no hydronephrosis or lesions noted. Right kidney with 3.1 cm compatible with Bosniak category 2 cyst which requires no imaging follow-up per radiology report. Left kidney with 4 mm nonobstructing renal calculi. The bladder is well distended and normal. Bladder jets are demonstrated. Pre void bladder volume is approximately 160 mL. Postvoid bladder volume is approximately 20 mL. A tiny right posterior lateral urinary bladder diverticulum is present measuring 7 mm in size. Prostate volume is approximately 15 mm with calcifications in the prostate gland. PSA 05/17 0.5, 07/17 1.0 He does have a family history of prostate cancer as his dad was diagnosed with prostate cancer at the age of 70. When asked he denies incontinence, hematuria, dysuria, foul smelling urine, flank pain, fever, and or chills. He is on 1 mg of finasteride daily for hair loss. We discussed bladder triggers/irritants. We discussed further treatment options to include trial of alpha-alvaro verses in office cystoscopy for further assessment evaluation. However patient feels lower urinary tract symptoms are manageable and will continue with surveillance monitoring at this time. We did discussed importance of obtaining more recent PSA. Information provided regarding GreenLight laser as patient was enquiring Rezum procedure as a recent friend of his in [place] had procedure completed. He otherwise offers no other issues or concerns at this time. [facility] Medical History Vitamin D deficiency Impaired fasting glucose External nasal lesion Pain and swelling of right knee GI bleed Overweight (BMI 25.0-29.9) Obstructive sleep apnea Allergic rhinitis Benign prostatic hyperplasia Pure hypercholesterolemia Surgical History (Updated 01/11/25 @ 09:38 by Bal Ramirez MD) History of colonoscopy History of arthroscopy of knee History of hernia repair Family History Father Prostate cancer Hypertension Hyperlipidemia Paternal Grandmother Diabetes mellitus Mother Hyperlipidemia Alzheimer's dementia Arthritis Social History Housing: House Alcohol intake: former Patient Tobacco Use Status: Never used Tobacco e-Cigarette/Vaping Use: Never Used Second Hand Smoke Exposure: No service: No Current occupational status: retired Cognitive needs: No Hearing needs: No Vision needs: Yes (reading glasses) Review of Systems Const All systems reviewed & are unremarkable except as noted in HPI and below Physical Exam Const General: cooperative, healthy appearing, comfortable, no acute distress, well developed, alert and awake Orientation/consciousness: patient oriented x3 Limitations: no limitations HEENT Head: Yes normal to inspection, Yes normocephalic and Yes atraumatic Ears: hearing grossly normal bilaterally Eyes General: appearance normal, both eyes and all related structures Neck Neck: Yes normal visual inspection and Yes trachea midline Chest Chest palpation & inspection: normal inspection of the chest Resp Effort & Inspection: normal respiratory effort and able to speak in complete sentences Cardio Rate: regular rate GI Inspection: Yes normal to inspection General: Yes no CVA tenderness Back/Spine/Pelvis Back: no CVA tenderness Skin General skin exam: no rashes or lesions noted Neuro General: patient oriented x3 Extrem General: Yes normal to inspection Psych Appearance: grossly normal and well kempt Mental Status: mental status grossly normal Speech and movement: Normal speech and movement present and Clear speech present Affect: normal affect Attitude: cooperative Thought process: Normal thought process present Thought content: Normal thought content present Insight: Fair insight present (Psych) Judgement: Fair judgement present (Psych) Office Procedures Post Void Residual Post Residual Void Post Void Residual (PVR): 0 [id number] Void Residual by ultrasound Assessment & Plan Assessment & Plan (1) Diverticula, bladder: Code(s): N32.3 - Diverticulum of bladder Category: Medical (2) Renal cyst: Code(s): N28.1 - Cyst of kidney, acquired Category: Medical (3) Nephrolithiasis: Code(s): N20.0 - Calculus of kidney Category: Medical (4) Benign prostatic hyperplasia with urinary hesitancy: Code(s): N40.1 - Benign prostatic hyperplasia with lower urinary tract symptoms; R39.11 - Hesitancy of micturition Category: Medical Plan Unable to obtain urine for urinalysis. PVR 0ml's. Will continue with surveillance monitoring of PSAs as well as lower urinary tract symptoms as patient feels lower urinary tract symptoms have been manageable without intervention. Information provided regarding GreenLight laser. Discussed bladder triggers/irritants. Discussed possible near future in office cystoscopy if symptoms arise. Will obtain PSA now and in 1 year. Follow-up in 1 year with PSA and PVR; or sooner with any issues, concerns, and or questions. Orders: Orders Prostate Specific Antigen 1 Year N40.1 - Benign prostatic hyperplasia with lower urinary tract symptoms, R39.11 - Hesitancy of micturition Prostate Specific Antigen Today N40.1 - Benign prostatic hyperplasia with lower urinary tract symptoms, R39.11 - Hesitancy of micturition Patient Instructions: The patient had an opportunity to ask questions regarding the treatment plan. All questions were answered. Physical exam, labs, and imaging were discussed and reviewed in detail. As well as risks, benefits, and discussion of treatment choices. No major barriers to understanding were identified. The patient expressed understanding and agreement with the above treatment plan. The patient was made aware they should contact our office by phone for worsening of their current condition, the appearance of new symptoms, or with any questions or concerns. Compliance is encouraged with any medications and follow up testing that is ordered. It is a privilege to be allowed the opportunity to participate in? your urological care.? Again, if you have any questions or concerns If you have any questions or concerns please do not hesitate to contact me. The office is [phone]. This note is constructed using voice recognition software. While every effort has been made to ensure accuracy weight engineer errors may have been included. Yours sincerely, KEYSHA Arthur Coding Level of Care Code Est Pt Level 3 (03858) Complex EM visit Add On G2211 Diagnoses Diverticula, bladder N32.3 Renal cyst N28.1 Nephrolithiasis N20.0 Benign prostatic hyperplasia with urinary hesitancy N40.1; R39.11 CPT Codes Post Residual Void - PVR CPT Code: 21396-[id number] Void Residual by ultrasound ([id number])
--- OUTSIDE RECORDS SUMMARY | 2025-05-30 08:52 | XMS_ITS | Patient Health Record ---
Author Organization [facility] Address [address] [place] [address] Care Team Providers Care School Health Assistant Name Role Phone Geovanni Ramirez MDh Primary Care Provider Shravan Murcia Unavailable [phone] Allergies Allergen (clinical drug ingredient) Drug/Non Drug [...] W/U Status Risk Notes Problem Plantar wart ([id number]) Plantar wart (B07.0) Active confirmed Plan Of Treatment Pending Test Test Name Order Date [id number] Destruction, 1-14 07/30/2021 [id number] Destruction, 1-14 06/10/2022 Insurance Providers Payer Name Payer Address Payer Phone Subscriber Number Group Number Insured Name Patient Relationship to Insured Coverage Start Date Coverage End Date [employer] 65 Medicare Preferred [address] [place] [address] [id number] Eliel Meek Self - patient is the insured Medical (General) History Medical History History ICD Code CAD (Cholesterol) Diverticulosis Lyme disease chronic sinusitis Warts Measles Mumps Chicken pox Transfusions Sleep apnea Surgical History Surgery Date(Month/Year) inguinal hernia repair Laparoscopy 04/13/18 ventral hernia repair 01/19/18 right knee arthroscopy 05/30/16 knee surgery, left 07/07/14
== END 2025-05-30 09:07 | disposition home or self-care (01) ==
LOC: HO.HUSH 08:25
PROVIDERS: PCP Internal Medicine; Visit Provider Nurse Practitioner Family
DX: N32.3 Diverticulum of bladder (principal); N28.1 Cyst of kidney, acquired; N20.0 Calculus of kidney; N40.1 Benign prostatic hyperplasia with lower urinary tract symptoms; R39.11 Hesitancy of micturition
CPT/HCPCS: 99213; G2211

== ENCOUNTER → 2025-05-30 08:24 | Outpatient (BNVA) | payer MEDICARE, SELFPAY | PROVIDERS: PCP Internal Medicine; Visit Provider Nurse Practitioner Family | DX: N32.3 Diverticulum of bladder (principal); N28.1 Cyst of kidney, acquired; N20.0 Calculus of kidney; N40.1 Benign prostatic hyperplasia with lower urinary tract symptoms; R39.11 Hesitancy of micturition | CPT/HCPCS: 51798; 99212 ==